=== PATIENT | female | born 1985 | race Caucasian/White ===

== ENCOUNTER 2018-02-25 16:56 | Inpatient (IN) | payer BC ==
[2018-02-25] MEDS ORDERED: Water For Irrigation,Sterile 1,000 ML Container IRR PRN (17:43)
[2018-02-25] MEDS ORDERED: Sodium Chloride 0.9% 2.5 ML Syringe FLUSH PRN (17:43)
[2018-02-25] MEDS ORDERED: Tranexamic Acid 1,000 MG in Sodium Chloride 0.9% 100 ML IV PRN (17:43)
[2018-02-25] MEDS ORDERED: Terbutaline 1 MG/ML SDV SUBCUT PRN (17:43)
[2018-02-25] MEDS ORDERED: Butorphanol 1 MG/ML SDV IVPUSH PRN (17:43)
[2018-02-25] MEDS ORDERED: Lidocaine 1% 50 ML MDV INJECT PRN (17:43)
[2018-02-25] MEDS ORDERED: Misoprostol 200 MCG Tab PO PRN (17:43)
[2018-02-25] MEDS ORDERED: Ampicillin 2 GM in Sodium Chloride 0.9% 100 ML IV ONE (17:43)
[2018-02-25] MEDS ORDERED: Methylergonovine 0.2 MG/1 ML Amp IM PRN (17:43)
[2018-02-25] MEDS ORDERED: Carboprost Tromethamine 250 MCG/1 ML Amp IM PRN (17:43)
[2018-02-25] MEDS ORDERED: Sodium Chloride 0.9% 10 ML Syringe FLUSH PRN (17:43)
[2018-02-25] MEDS ORDERED: Oxytocin/0.9 % Sodium Chloride 30 UNIT/500 ML BAG IV SCH ×2 (17:45)
[2018-02-25] MEDS ORDERED: Misoprostol 25 MCG (1/4 of 100 MCG) Tab VAG SCH (17:45)
[2018-02-25] MEDS: Ampicillin 1 GM in Sodium Chloride 0.9% 50 ML IV SCH (22:49)
[2018-02-25] MEDS: Misoprostol 25 MCG (1/4 of 100 MCG) Tab VAG PRN (23:05)
[2018-02-26] MEDS: Ampicillin 1 GM in Sodium Chloride 0.9% 50 ML IV SCH ×5 (02:46→19:10)
[2018-02-26] MEDS: Misoprostol 25 MCG (1/4 of 100 MCG) Tab VAG PRN (03:57)
[2018-02-26] MEDS: Lactated Ringers 1,000 ML IV SCH ×4 (13:00→20:38)
[2018-02-26] MEDS ORDERED: Ropivacaine 0.2% 2 MG/ML 20 ML SDV ONE (13:32)
--- NOTE | 2018-02-26 14:13 | PCM.PREANE ---
Preanesthetic Assessment - Procedure Proposed Procedure: labor epidural - Anesthesia/Transfusion/Family Hx Anesthesia History: Prior Anesthesia Without Reaction Family History of Anesthesia Reaction: No - Review of Systems Other: Reports: None - Physical Assessment Height: 5 ft 4 in Weight: 115.666 kg ASA Class: 2 Mental Status: Alert & Oriented x3 Airway Class: Mallampati = 1 Dentition: Reports: Normal Dentition Thyro-Mental Finger Breadths: 3 Mouth Opening Finger Breadths: 3 ROM/Head Extension: Full - Lab Values: Laboratory Last Values WBC 11.64 K/uL (4.0-11.0) H 02/25/18 18:15 RBC 4.47 M/uL (4.30-5.90) 02/25/18 18:15 Hgb 13.1 g/dL (12.0-16.0) 02/25/18 18:15 Hct 38.6 % (36.0-46.0) 02/25/18 18:15 MCV 86.4 fL (80.0-98.0) 02/25/18 18:15 MCH 29.3 pg (27.0-32.0) 02/25/18 18:15 MCHC 33.9 g/dL (31.0-37.0) 02/25/18 18:15 RDW Std Deviation 46.6 fl (28.0-62.0) 02/25/18 18:15 RDW Coeff of Natasha 15 % (11.0-15.0) 02/25/18 18:15 Plt Count 211 K/uL (150-400) 02/25/18 18:15 MPV 11.70 fL (7.40-12.00) 02/25/18 18:15 Nucleated RBC % 0.0 /100WBC 02/25/18 18:15 Nucleated RBCs # 0 K/uL 02/25/18 18:15 Blood Type O POSITIVE 02/25/18 18:15 Antibody Screen NEGATIVE 02/25/18 18:15 - Allergies Allergies/Adverse Reactions: Allergies Allergy/AdvReac Type Severity Reaction Status Date / Time No Known Allergies Allergy Verified 02/25/18 17:39 - Blood Blood Available: Yes Product(s) Available: PRBC - Acknowledgements Anesthesia Type Planned: Epidural Pt an Appropriate Candidate for the Planned Anesthesia: Yes Alternatives and Risks of Anesthesia Discussed w Pt/Guardian: Yes Pt/Guardian Understands and Agrees with Anesthesia Plan: Yes PreAnesthesia Questionnaire HEENT History: Reports: Other (See Below) [employer] SALES History: Reports: , Spontaneous - Past Surgical History HEENT Surgical History: Reports: Other (See Below) Other HEENT Surgeries/Procedures: Retinal Hole laser . [place] teeth extraction - SUBSTANCE USE Smoking Status *Q: Never Smoker Tobacco Use Within Last Twelve Months: No Second Hand Smoke Exposure: No Recreational Drug Use History: No - HOME MEDS Home Medications: Home Meds Fexofenadine/Pseudoephedrine [Verónica-D 24 Hour Tablet] 1 each PO 02/25/18 [ History] MV-Mn/Iron/FA/Herbal Cmplx#190 [Vitamin D3 Complete Caplet] 1 each PO 02/25/18 [ History] Vit No.129/Iron/FA [ Tablet] 1 each PO 02/25/18 [History] - CURRENT (IN HOUSE) MEDS Current Meds: Current Medications Butorphanol Tartrate (Stadol) 1 mg IVPUSH ASDIRECTED PRN PRN Reason: Pain Carboprost Tromethamine (Hemabate Ds) 250 mcg IM ASDIRECTED PRN PRN Reason: Post Hemorrhage Lactated Ringer's (Ringers, Lactated) 1,000 mls @ 150 mls/hr IV ASDIRECTED SHANE Last Admin: 02/26/18 14:02 Dose: 999 mls/hr Oxytocin/Sodium Chloride (Oxytocin 30 Unit/500 Ml-Ns) 30 unit in 500 mls @ 999 mls/hr IV TITRATE SHANE Oxytocin/Sodium Chloride (Oxytocin 30 Unit/500 Ml-Ns) 30 unit in 500 mls @ 2 mls/hr IV TITRATE SHANE; Protocol Last Titration: 02/26/18 14:05 Dose: 12 munits/min, 12 mls/hr Tranexamic Acid 1,000 mg/ (Sodium Chloride) 110 mls @ 660 mls/hr IV ONETIME PRN PRN Reason: Bleeding Ampicillin Sodium 1 gm/ Sodium (Chloride) 50 mls @ 100 mls/hr IV Q4H SHANE Last Admin: 02/26/18 10:21 Dose: 100 mls/hr Lidocaine HCl (Xylocaine 1%) 50 ml INJECT .ONCE PRN PRN Reason: Laceration repair Methylergonovine Maleate (Methergine) 0.2 mg IM ASDIRECTED PRN PRN Reason: Post Hemorrhage Misoprostol (Cytotec) 200 mcg PO .ONCE PRN PRN Reason: Post Hemorrhage Misoprostol (Cytotec) 25 mcg VAG .ONCE SHANE Last Admin: 02/25/18 18:29 Dose: 25 mcg Misoprostol (Cytotec) 25 mcg VAG Q4H PRN PRN Reason: Cervical Ripening Last Admin: 02/26/18 03:57 Dose: 25 mcg Sodium Chloride (Saline Flush) 10 ml FLUSH ASDIRECTED PRN PRN Reason: Keep Vein Open Sodium Chloride (Saline Flush) 2.5 ml FLUSH ASDIRECTED PRN PRN Reason: Keep Vein Open Sterile Water (Sterile Water For Irrigation) 1,000 ml IRR ASDIRECTED PRN PRN Reason: delivery Terbutaline Sulfate (Brethine) 0.25 mg SUBCUT ASDIRECTED PRN PRN Reason: Tacysystole Discontinued Medications Ampicillin Sodium 2 gm/ Sodium (Chloride) 100 mls @ 200 mls/hr IV ONETIME ONE Stop: 02/25/18 18:12 Last Admin: 02/25/18 18:25 Dose: 200 mls/hr Fentanyl/Bupivacaine HCl (Jkayflsy-Npcvn-Ax 2 Mcg/Ml-0.125%) Confirm Administered Dose 100 mls @ as directed EP .STK-MED ONE Stop: 02/26/18 13:33 Ropivacaine (Naropin 0.2%) Confirm Administered Dose 20 ml .ROUTE .STK-MED ONE Stop: 02/26/18 13:33
[2018-02-26] MEDS ORDERED: Citric Acid/Sodium Citrate Solution 30 ML Cup PO ONE (19:38)
[2018-02-26] MEDS ORDERED: Bupivacaine 0.5% 10 ML SDV ONE (23:04)
[2018-02-26] MEDS ORDERED: Ropivacaine HCl/PF 100 ML ONE (23:04)
[2018-02-27] MEDS: Ampicillin 1 GM in Sodium Chloride 0.9% 50 ML IV SCH ×2 (00:10→04:10)
[2018-02-27] MEDS ORDERED: Bupivacaine 0.5% 10 ML SDV ONE (06:36)
[2018-02-27] MEDS ORDERED: ceFAZolin 2 GM in Premix Bag 1 BAG IV ONE (06:46)
[2018-02-27] MEDS ORDERED: ceFAZolin/Dextrose,Iso-Osmotic 2 GM/50 ML Duplex Bag IV ONE (06:53)
[2018-02-27] MEDS ORDERED: Morphine PF 1 MG/ML Amp ONE (06:58)
[2018-02-27] MEDS ORDERED: Oxytocin/0.9 % Sodium Chloride 30 UNIT/500 ML BAG IV SCH (07:00)
[2018-02-27] MEDS ORDERED: Citric Acid/Sodium Citrate Solution 30 ML Cup PO SCH (07:00)
[2018-02-27] MEDS ORDERED: ePHEDrine 50 MG/ML SDV ONE (07:05)
[2018-02-27] MEDS ORDERED: Phenylephrine/Normal Saline 100 MCG/ML 10 ML Syringe ONE (07:06)
[2018-02-27] MEDS ORDERED: fentaNYL 100 MCG/2 ML SDV ONE ×2 (07:11→07:29)
[2018-02-27] MEDS ORDERED: Oxytocin 10 Units/1 ML SDV ONE (07:25)
[2018-02-27] MEDS ORDERED: Acetaminophen/oxyCODONE 325-5 MG Tab PO PRN (07:48)
[2018-02-27] MEDS ORDERED: Lanolin 100% Cream 7 GM Tube TOP PRN (07:48)
[2018-02-27] MEDS ORDERED: Bisacodyl 10 MG Supp RECTAL PRN (07:48)
[2018-02-27] MEDS ORDERED: Aluminum Hydroxide/Magnesium Hydroxide/Simethicone Susp 30 ML Cup PO PRN (07:48)
[2018-02-27] MEDS ORDERED: Ondansetron 4 MG/2 ML SDV IV PRN (07:48)
[2018-02-27] MEDS ORDERED: diphenhydrAMINE 50 MG/ML SDV IVPUSH PRN ×2 (07:48→08:07)
[2018-02-27] MEDS ORDERED: Simethicone 80 MG Tab.Chew PO PRN (07:48)
--- NOTE | 2018-02-27 07:57 | PCM.OPNOTE ---
- General Post-Op/Procedure Note Date of Surgery/Procedure: 02/27/18 Operative Procedure(s): Primary LTCS Findings: Term male APGARs 9, 9 weight 3540 gm. Delivery intact placenta with 3V cord Pre Op Diagnosis: 40/1 week IUP. Arrest of descent Post-Op Diagnosis: Same Anesthesia Technique: Epidural Primary Surgeon: Jenelle Daniels Fluid Replacement, Intraop: 1,100 EBL in mLs: 500 Complications: none known Condition: Good Free Text/Narrative:: Dictation [id number]
[2018-02-27] MEDS ORDERED: Lactated Ringers 1,000 ML IV SCH (08:00)
[2018-02-27] MEDS: Ketorolac 30 MG/ML SDV IVPUSH SCH ×3 (08:04→20:25)
[2018-02-27] MEDS ORDERED: Naloxone 0.4 MG/ML Syringe IVPUSH PRN (08:07)
[2018-02-27] MEDS ORDERED: Nalbuphine 10 MG/ML 10 ML MDV IVPUSH PRN (08:07)
[2018-02-27] MEDS: Docusate Sodium 100 MG Cap PO SCH ×2 (10:34→21:42)
--- NOTE | 2018-02-27 11:45 | OR ---
SURGEON: Jenelle Daniels M.D. DATE OF PROCEDURE: 02/27/2018 PREOPERATIVE DIAGNOSES: 1. Forty and one week intrauterine . 2. Arrest of descent. POSTOPERATIVE DIAGNOSES: 1. Forty and one week intrauterine . 2. Arrest of descent. PROCEDURE: Primary low-transverse section. ANESTHESIA: Epidural. ESTIMATED BLOOD LOSS: 500 mL. FLUIDS: 1100 mL crystalloid in OR. FINDINGS: Term male, score 9 at 1 minute, 9 at 5 minutes. Weight of 3540 g and delivery of placenta, 3-vessel cord. Normal-appearing pelvis. DISPOSITION: The patient to PACU, stable. to nursery. PROCEDURE IN DETAIL: Grace is a 32-year-old, G2, P0-0-1-0 at 41 weeks gestational age, who presented on the evening of 02/25/2018, for scheduled induction of labor due to polyhydramnios, term gestation. The patient underwent Cytotec ripening, progressed to Pitocin and made slow cervical change during the afternoon and evening hours yesterday but then progressed rather rapidly to 9 cm yesterday evening. She is group B beta strep positive, has been receiving ampicillin prophylaxis. She progressed to complete by approximately 2 a.m. and began pushing efforts at approximately 2:30-3 a.m. She pushed readily for a little over 2 hours, however, made minimal change past the +3 station. Thus came in and discussed options with her. They elected for forceps-assisted vaginal delivery attempt. Closed Lepe's forceps are utilized. The bladder is drained. sutures were palpated including sagittal suture. I was able to place the left blade followed by the right blade and with the next pushing efforts after being able to lock the blade with contraction, was able to attempt to help with delivery of the head. However, there was just really no descent at all even with the forceps being applied. Therefore with this one effort, I discussed with the patient that it was probably best to proceed with delivery given the lack of descent even with the forceps assistance. She voiced her understanding and agrees. The forceps have been removed. Nursing supervisor poultry farm and anesthesia been notified. Risks of procedure discussed with her. The patient was taken to the operating room where she underwent a bolus of her epidural, was placed in the supine position leftward tilt in frog-leg position. She received Ancef prophylactically. SCDs to lower extremities. She was prepped and draped in the usual sterile fashion. A time-out was performed. After being prepped and draped in usual sterile fashion, anesthesia was tested and found be adequate. Pfannenstiel skin incision was created, carried down to level of the rectus fascia, which was incised in midline, lateralized on either side. The superior aspect of fascia was tented upward, dissected sharply and bluntly from underlying muscles. In the similar aspect performed the inferior aspect of the fascia and rectus muscles laterally. The peritoneum was entered, rectus muscles and peritoneum were now lateralized bluntly. Uterine position and position palpated. Self-retaining retractor gently placed. The uterovesical reflection visualized. Bladder flap was created sharply and bluntly. Bladder was mobilized away from lower uterine segment, bladder was swollen. The low-transverse hysterotomy was performed. Uterine cavity was entered with blunt-end scalpel. Hysterotomy was lateralized bluntly. Clear fluid was returned. There was a labor and delivery nurse with a vaginal hand present. On my signal, she was able to flex the head and push up to deliver out of the pelvis. My hand was able to secure the infant's head, delivered remainder of the body out of the pelvis. The infant's head was delivered followed by anterior shoulder, posterior shoulder and remainder of body without difficulty. The 's oropharynx and nares were bulb suctioned. A shoulder cord was noted, this was reduced manually. The 's oropharynx and nares bulb suctioned. Cord clamped x2 and cut. Infant was crying and vigorous, handed off to attending physician, Dr. Mcgee. Cord arterial, cord venous, cord blood sampling obtained. Light pressure was obtained. The placenta was now delivered. Uterine cavity was cleared of all clot and debris. Hysterotomy repaired using 0 Vicryl in continuous running locked fashion followed by a re-imbricating layer. Hemostasis appeared evident. Posterior aspect of the uterus inspected, no defects or hematomas found be forming. Region was well irrigated suction dried. Colonic gutters were cleared of all clot, debris, well irrigated and suction dried. Hysterotomy was once again inspected and found to be hemostatic. Self-retaining retractor now gently removed. Bladder blade now placed. Hysterotomy was again inspected and found to be hemostatic. The rectus muscle reapproximated using 0 Vicryl with inverted mattress suture technique. Anterior aspect of the muscle, posterior aspect of the fascia closely inspected. Any areas of oozing were cauterized. The rectus fascia was now reapproximated using 0 Vicryl in continuous running fashion beginning laterally on each side meeting in the midline. Subcutaneous tissues were irrigated and suction dried. Any areas of oozing were cauterized. The skin edges were reapproximated using 3-0 Vicryl in subcuticular fashion with imbrication by half-inch Steri-Strips. Sponge, instrument, needle count was correct x2. The patient tolerated the procedure well. She will go to PACU in stable condition, to nursery. DEYANIRA / LYDIA /[id number]
[2018-02-28] MEDS: Ketorolac 30 MG/ML SDV IVPUSH SCH ×2 (02:21→08:20)
--- NOTE | 2018-02-28 08:15 | PCM.PNPP ---
<Ana Maria Chris - Last Filed: 02/28/18 08:16> - General Info Date of Service: 02/28/18 Functional Status: Reports: Pain Controlled, Tolerating Diet, Ambulating, Urinating - Review of Systems General: Denies: Fever, Weakness, Fatigue Pulmonary: Denies: Shortness of Breath, Pleuritic Chest Pain, Cough Cardiovascular: Denies: Chest Pain, Palpitations, Dyspnea on Exertion Gastrointestinal: Denies: Abdominal Pain Genitourinary: Denies: Dysuria - Patient Data Vital Signs - Most Recent: Last Vital Signs Temp 36.3 C 02/28/18 05:00 Pulse 80 02/28/18 06:00 Resp 16 02/28/18 06:00 BP 128/75 02/28/18 00:45 Pulse Ox 95 02/28/18 06:00 Weight - Most Recent: 115.666 kg I&O - Last 24 Hours: Intake & Output 02/27/18 02/28/18 02/28/18 22:59 06:59 14:59 Intake Total 2075 Output Total 400 1650 Balance 1675 -1650 Lab Results - Last 24 Hours: Laboratory Results - last 24 hr 02/28/18 Range/Units 04:50 Hgb 9.8 L (12.0-16.0) g/dL Hct 30.0 L (36.0-46.0) % Med Orders - Current: Current Medications Al Hydroxide/Mg Hydroxide (Mag-Al Plus) 30 ml PO Q8H PRN PRN Reason: Heartburn Bisacodyl (Dulcolax) 10 mg RECTAL .ONCE PRN PRN Reason: Constipation Carboprost Tromethamine (Hemabate Ds) 250 mcg IM ASDIRECTED PRN PRN Reason: Post Hemorrhage Citric Acid/Sodium Citrate (Bicitra Solution) 30 ml PO .ONCE [facility]ANE Diphenhydramine HCl (Benadryl) 25 mg IVPUSH Q6H PRN PRN Reason: Itching or Nausea Docusate Sodium (Colace) 100 mg PO BID [facility] Last Admin: 02/27/18 21:42 Dose: 100 mg Emollient Ointment (Lansinoh Hpa) 0 gm TOP ASDIRECTED PRN PRN Reason: Sore Nipples Lactated Ringer's (Ringers, Lactated) 1,000 mls @ 150 mls/hr IV ASDIRECTED [facility] Last Admin: 02/26/18 20:38 Dose: 150 mls/hr Tranexamic Acid 1,000 mg/ (Sodium Chloride) 110 mls @ 660 mls/hr IV ONETIME PRN PRN Reason: Bleeding Oxytocin/Sodium Chloride (Oxytocin 30 Unit/500 Ml-Ns) 30 unit in 500 mls @ 250 mls/hr IV TITRATE [facility] Lactated Ringer's (Ringers, Lactated) 1,000 mls @ 125 mls/hr IV ASDIRECTED [facility] Last Admin: 02/27/18 10:35 Dose: 125 mls/hr Ibuprofen (Motrin) 800 mg PO Q8H PRN PRN Reason: mild pain or fever Methylergonovine Maleate (Methergine) 0.2 mg IM ASDIRECTED PRN PRN Reason: Post Hemorrhage Misoprostol (Cytotec) 200 mcg PO .ONCE PRN PRN Reason: Post Hemorrhage Ondansetron HCl (Zofran) 4 mg IV Q4H PRN PRN Reason: Nausea/Vomiting Oxycodone/Acetaminophen (Percocet 325-5 Mg) 1 tab PO Q4H PRN PRN Reason: Pain (moderate 4-6) Oxycodone/Acetaminophen (Percocet 325-5 Mg) 2 tab PO Q4H PRN PRN Reason: Pain (moderate 4-6) Simethicone (Simethicone) 80 mg PO Q4H PRN PRN Reason: Gas Sodium Chloride (Saline Flush) 10 ml FLUSH ASDIRECTED PRN PRN Reason: Keep Vein Open Sodium Chloride (Saline Flush) 2.5 ml FLUSH ASDIRECTED PRN PRN Reason: Keep Vein Open Discontinued Medications Bupivacaine HCl (Sensorcaine-Mpf 0.5%) Confirm Administered Dose 10 ml .ROUTE .STK-MED ONE Stop: 02/26/18 23:05 Last Admin: 02/27/18 09:15 Dose: Not Given Bupivacaine HCl (Sensorcaine-Mpf 0.5%) Confirm Administered Dose 20 ml .ROUTE .STK-MED ONE Stop: 02/27/18 06:37 Last Admin: 02/27/18 09:16 Dose: Not Given Butorphanol Tartrate (Stadol) 1 mg IVPUSH ASDIRECTED PRN PRN Reason: Pain Cefazolin Sodium/Dextrose (Ancef) Confirm Administered Dose 2 gm IV .STK-MED ONE Stop: 02/27/18 06:54 Citric Acid/Sodium Citrate (Bicitra Solution) 30 ml PO ONETIME ONE Stop: 02/26/18 19:39 Last Admin: 02/26/18 19:46 Dose: 30 ml Diphenhydramine HCl (Benadryl) 25 mg IVPUSH Q4H PRN PRN Reason: Itching Stop: 02/28/18 08:08 Ephedrine Sulfate (Ephedrine Sulfate) Confirm Administered Dose 50 mg .ROUTE .STK-MED ONE Stop: 02/27/18 07:06 Fentanyl (Sublimaze) Confirm Administered Dose 100 mcg .ROUTE .STK-MED ONE Stop: 02/27/18 07:12 Fentanyl (Sublimaze) Confirm Administered Dose 100 mcg .ROUTE .STK-MED ONE Stop: 02/27/18 07:30 Ampicillin Sodium 2 gm/ Sodium (Chloride) 100 mls @ 200 mls/hr IV ONETIME ONE Stop: 02/25/18 18:12 Last Admin: 02/25/18 18:25 Dose: 200 mls/hr Oxytocin/Sodium Chloride (Oxytocin 30 Unit/500 Ml-Ns) 30 unit in 500 mls @ 999 mls/hr IV TITRATE SHANE Oxytocin/Sodium Chloride (Oxytocin 30 Unit/500 Ml-Ns) 30 unit in 500 mls @ 2 mls/hr IV TITRATE [facility]; Protocol Last Titration: 02/27/18 02:20 Dose: 40 munits/min, 40 mls/hr Ampicillin Sodium 1 gm/ Sodium (Chloride) 50 mls @ 100 mls/hr IV Q4H [facility] Last Admin: 02/27/18 04:10 Dose: 100 mls/hr Fentanyl/Bupivacaine HCl (Notfdnjf-Bccef-Ey 2 Mcg/Ml-0.125%) Confirm Administered Dose 100 mls @ as directed EP .STK-MED ONE Stop: 02/26/18 13:33 Last Admin: 02/27/18 09:15 Dose: Not Given Fentanyl/Bupivacaine HCl (Gsucayra-Baapf-If 2 Mcg/Ml-0.125%) Confirm Administered Dose 100 mls @ as directed EP .STK-MED ONE Stop: 02/26/18 19:40 Last Admin: 06/20/18 09:15 Dose: Not Given Ropivacaine (Naropin 0.2%) Confirm Administered Dose 100 mls @ as directed .ROUTE .STK-MED ONE Stop: 02/26/18 23:05 Last Admin: 02/27/18 09:15 Dose: Not Given Cefazolin Sodium/Dextrose 2 gm (/ Premix) 50 mls @ 100 mls/hr IV ONETIME ONE Stop: 02/27/18 07:15 Last Admin: 02/27/18 09:15 Dose: Not Given Acetaminophen (Ofirmev) Confirm Administered Dose 100 mls @ as directed IV .STK- MED ONE Stop: 02/27/18 07:31 Ketorolac Tromethamine (Toradol) 30 mg IVPUSH Q6H [facility] Stop: 02/28/18 08:01 Last Admin: 02/28/18 02:21 Dose: 30 mg Lidocaine HCl (Xylocaine 1%) 50 ml INJECT .ONCE PRN PRN Reason: Laceration repair Misoprostol (Cytotec) 25 mcg VAG .ONCE [facility] Last Admin: 02/25/18 18:29 Dose: 25 mcg Misoprostol (Cytotec) 25 mcg VAG Q4H PRN PRN Reason: Cervical Ripening Last Admin: 02/26/18 03:57 Dose: 25 mcg Morphine Sulfate (Duramorph Pf) Confirm Administered Dose 1 mg .ROUTE .STK-MED ONE Stop: 02/27/18 06:59 Nalbuphine HCl (Nubain) 5 mg IVPUSH Q3H PRN PRN Reason: Pruritis Stop: 02/28/18 08:08 Naloxone HCl (Narcan) 0.1 mg IVPUSH ONETIME PRN PRN Reason: Respiratory Depression Stop: 02/28/18 08:08 Oxytocin (Pitocin) Confirm Administered Dose 20 unit .ROUTE .STK-MED ONE Stop: 02/27/18 07:26 Phenylephrine HCl (Phenylephrine In Ns 100 Mcg/Ml) Confirm Administered Dose 1 mg .ROUTE .STK-MED ONE Stop: 02/27/18 07:07 Ropivacaine (Naropin 0.2%) Confirm Administered Dose 20 ml .ROUTE .STK-MED ONE Stop: 02/26/18 13:33 Last Admin: 02/27/18 09:15 Dose: Not Given Sterile Water (Sterile Water For Irrigation) 1,000 ml IRR ASDIRECTED PRN PRN Reason: delivery Terbutaline Sulfate (Brethine) 0.25 mg SUBCUT ASDIRECTED PRN PRN Reason: Tacysystole - Interaction Disposition, : Point Lay to Nursery Infant Feeding: Attempted ; Nursed Fair/Poor Support Person: - Recovery Exam Fundal Tone: Firm Fundal Level: At Umbilicus Fundal Placement: Midline Lochia Amount: Scant Lochia Color: Rubra/Red Perineum Description: Intact, Minimal Bruising/Swelling Urinary Elimination: Not Voiding (catheter removed and has not voided) - Exam General: Alert Neck: Supple Lungs: Clear to Auscultation, Normal Respiratory Effort Cardiovascular: Regular Rate, Regular Rhythm GI/Abdominal Exam: Normal Bowel Sounds, Soft, Non-Tender, No Distention Extremities: Normal Inspection, Normal Capillary Refill, Pedal Edema (1+) Skin: Warm, Dry, Intact - Problem List & Annotations (1) delivery delivered SNOMED Code(s): 685033354 Code(s): O82 - ENCOUNTER FOR DELIVERY WITHOUT INDICATION Status: Acute Current Visit: Yes - Problem List Review Problem List Initiated/Reviewed/Updated: Yes - Assessment Assessment:: POD#1 s/p PLTCS for arrest of descent. Minimal pain and lochia. Will work on breast feeding today. Encouraged patient to ambulate halls and can shower. - Plan Plan:: Continue routine post-op cares. <Jenelle Daniels - Last Filed: 02/28/18 08:56> - Patient Data Vital Signs - Most Recent: Last Vital Signs Temp 36.6 C 02/28/18 08:08 Pulse 88 02/28/18 08:08 Resp 17 02/28/18 08:08 BP 119/62 02/28/18 08:08 Pulse Ox 96 02/28/18 08:08 I&O - Last 24 Hours: Intake & Output 02/27/18 02/28/18 02/28/18 22:59 06:59 14:59 Intake Total 2075 Output Total 400 1650 Balance 1675 -1650 Lab Results - Last 24 Hours: Laboratory Results - last 24 hr 02/28/18 Range/Units 04:50 Hgb 9.8 L (12.0-16.0) g/dL Hct 30.0 L (36.0-46.0) % Med Orders - Current: Current Medications Al Hydroxide/Mg Hydroxide (Mag-Al Plus) 30 ml PO Q8H PRN PRN Reason: Heartburn Bisacodyl (Dulcolax) 10 mg RECTAL .ONCE PRN PRN Reason: Constipation Carboprost Tromethamine (Hemabate Ds) 250 mcg IM ASDIRECTED PRN PRN Reason: Post Hemorrhage Citric Acid/Sodium Citrate (Bicitra Solution) 30 ml PO .ONCE [facility] Diphenhydramine HCl (Benadryl) 25 mg IVPUSH Q6H PRN PRN Reason: Itching or Nausea Docusate Sodium (Colace) 100 mg PO BID [facility] Last Admin: 02/28/18 08:21 Dose: 100 mg Emollient Ointment (Lansinoh Hpa) 0 gm TOP ASDIRECTED PRN PRN Reason: Sore Nipples Lactated Ringer's (Ringers, Lactated) 1,000 mls @ 150 mls/hr IV ASDIRECTED [facility] Last Admin: 02/26/18 20:38 Dose: 150 mls/hr Tranexamic Acid 1,000 mg/ (Sodium Chloride) 110 mls @ 660 mls/hr IV ONETIME PRN PRN Reason: Bleeding Oxytocin/Sodium Chloride (Oxytocin 30 Unit/500 Ml-Ns) 30 unit in 500 mls @ 250 mls/hr IV TITRATE [facility] Lactated Ringer's (Ringers, Lactated) 1,000 mls @ 125 mls/hr IV ASDIRECTED [facility] Last Admin: 02/27/18 10:35 Dose: 125 mls/hr Ibuprofen (Motrin) 800 mg PO Q8H PRN PRN Reason: mild pain or fever Methylergonovine Maleate (Methergine) 0.2 mg IM ASDIRECTED PRN PRN Reason: Post Hemorrhage Misoprostol (Cytotec) 200 mcg PO .ONCE PRN PRN Reason: Post Hemorrhage Ondansetron HCl (Zofran) 4 mg IV Q4H PRN PRN Reason: Nausea/Vomiting Oxycodone/Acetaminophen (Percocet 325-5 Mg) 1 tab PO Q4H PRN PRN Reason: Pain (moderate 4-6) Oxycodone/Acetaminophen (Percocet 325-5 Mg) 2 tab PO Q4H PRN PRN Reason: Pain (moderate 4-6) Simethicone (Simethicone) 80 mg PO Q4H PRN PRN Reason: Gas Sodium Chloride (Saline Flush) 10 ml FLUSH ASDIRECTED PRN PRN Reason: Keep Vein Open Sodium Chloride (Saline Flush) 2.5 ml FLUSH ASDIRECTED PRN PRN Reason: Keep Vein Open Discontinued Medications Bupivacaine HCl (Sensorcaine-Mpf 0.5%) Confirm Administered Dose 10 ml .ROUTE .STK-MED ONE Stop: 02/26/18 23:05 Last Admin: 02/27/18 09:15 Dose: Not Given Bupivacaine HCl (Sensorcaine-Mpf 0.5%) Confirm Administered Dose 20 ml .ROUTE .STK-MED ONE Stop: 02/27/18 06:37 Last Admin: 02/27/18 09:16 Dose: Not Given Butorphanol Tartrate (Stadol) 1 mg IVPUSH ASDIRECTED PRN PRN Reason: Pain Cefazolin Sodium/Dextrose (Ancef) Confirm Administered Dose 2 gm IV .STK-MED ONE Stop: 02/27/18 06:54 Citric Acid/Sodium Citrate (Bicitra Solution) 30 ml PO ONETIME ONE Stop: 02/26/18 19:39 Last Admin: 02/26/18 19:46 Dose: 30 ml Diphenhydramine HCl (Benadryl) 25 mg IVPUSH Q4H PRN PRN Reason: Itching Stop: 02/28/18 08:08 Ephedrine Sulfate (Ephedrine Sulfate) Confirm Administered Dose 50 mg .ROUTE .STK-MED ONE Stop: 02/27/18 07:06 Fentanyl (Sublimaze) Confirm Administered Dose 100 mcg .ROUTE .STK-MED ONE Stop: 02/27/18 07:12 Fentanyl (Sublimaze) Confirm Administered Dose 100 mcg .ROUTE .STK-MED ONE Stop: 02/27/18 07:30 Ampicillin Sodium 2 gm/ Sodium (Chloride) 100 mls @ 200 mls/hr IV ONETIME ONE Stop: 02/25/18 18:12 Last Admin: 02/25/18 18:25 Dose: 200 mls/hr Oxytocin/Sodium Chloride (Oxytocin 30 Unit/500 Ml-Ns) 30 unit in 500 mls @ 999 mls/hr IV TITRATE [facility] Oxytocin/Sodium Chloride (Oxytocin 30 Unit/500 Ml-Ns) 30 unit in 500 mls @ 2 mls/hr IV TITRATE [facility]; Protocol Last Titration: 02/27/18 02:20 Dose: 40 munits/min, 40 mls/hr Ampicillin Sodium 1 gm/ Sodium (Chloride) 50 mls @ 100 mls/hr IV Q4H [facility] Last Admin: 02/27/18 04:10 Dose: 100 mls/hr Fentanyl/Bupivacaine HCl (Slhmshiz-Qnwfo-Vw 2 Mcg/Ml-0.125%) Confirm Administered Dose 100 mls @ as directed EP .STK-MED ONE Stop: 02/26/18 13:33 Last Admin: 02/27/18 09:15 Dose: Not Given Fentanyl/Bupivacaine HCl (Khvoxzwj-Axxhh-Mn 2 Mcg/Ml-0.125%) Confirm Administered Dose 100 mls @ as directed EP .STK-MED ONE Stop: 02/26/18 19:40 Last Admin: 02/27/18 09:15 Dose: Not Given Ropivacaine (Naropin 0.2%) Confirm Administered Dose 100 mls @ as directed .ROUTE .STK-MED ONE Stop: 02/26/18 23:05 Last Admin: 02/27/18 09:15 Dose: Not Given Cefazolin Sodium/Dextrose 2 gm (/ Premix) 50 mls @ 100 mls/hr IV ONETIME ONE Stop: 02/27/18 07:15 Last Admin: 02/27/18 09:15 Dose: Not Given Acetaminophen (Ofirmev) Confirm Administered Dose 100 mls @ as directed IV .STK- MED ONE Stop: 02/27/18 07:31 Ketorolac Tromethamine (Toradol) 30 mg IVPUSH Q6H [facility] Stop: 02/28/18 08:01 Last Admin: 02/28/18 08:20 Dose: 30 mg Lidocaine HCl (Xylocaine 1%) 50 ml INJECT .ONCE PRN PRN Reason: Laceration repair Misoprostol (Cytotec) 25 mcg VAG .ONCE [facility] Last Admin: 02/25/18 18:29 Dose: 25 mcg Misoprostol (Cytotec) 25 mcg VAG Q4H PRN PRN Reason: Cervical Ripening Last Admin: 02/26/18 03:57 Dose: 25 mcg Morphine Sulfate (Duramorph Pf) Confirm Administered Dose 1 mg .ROUTE .STK-MED ONE Stop: 02/27/18 06:59 Nalbuphine HCl (Nubain) 5 mg IVPUSH Q3H PRN PRN Reason: Pruritis Stop: 02/28/18 08:08 Naloxone HCl (Narcan) 0.1 mg IVPUSH ONETIME PRN PRN Reason: Respiratory Depression Stop: 02/28/18 08:08 Oxytocin (Pitocin) Confirm Administered Dose 20 unit .ROUTE .STK-MED ONE Stop: 02/27/18 07:26 Phenylephrine HCl (Phenylephrine In Ns 100 Mcg/Ml) Confirm Administered Dose 1 mg .ROUTE .STK-MED ONE Stop: 02/27/18 07:07 Ropivacaine (Naropin 0.2%) Confirm Administered Dose 20 ml .ROUTE .STK-MED ONE Stop: 02/26/18 13:33 Last Admin: 02/27/18 09:15 Dose: Not Given Sterile Water (Sterile Water For Irrigation) 1,000 ml IRR ASDIRECTED PRN PRN Reason: delivery Terbutaline Sulfate (Brethine) 0.25 mg SUBCUT ASDIRECTED PRN PRN Reason: Tacysystole - My Orders Last 24 Hours: My Active Orders 02/27/18 08:00 Lactated Ringers [Ringers, Lactated] 1,000 ml IV ASDIRECTED 02/27/18 09:00 Docusate Sodium [Colace] 100 mg PO BID 02/27/18 Lunch Regular Diet [DIET] - Plan Plan:: Patient seen and examined--agree with above. Ambulate halls today, may shower. Tracy catheter has been removed.
[2018-02-28] MEDS: Docusate Sodium 100 MG Cap PO SCH ×2 (08:21→20:14)
[2018-02-28] MEDS: Acetaminophen/oxyCODONE 325-5 MG Tab PO PRN ×2 (14:28→20:14)
[2018-02-28] MEDS: Ibuprofen 800 MG Tab PO PRN ×2 (14:29→22:35)
--- NOTE | 2018-02-28 15:01 | PCM48HPAN ---
Post Anesthesia Note - EVALUATION WITHIN 48HRS OF ANESTHETIC Vital Signs in Normal Range: Yes Patient Participated in Evaluation: Yes Respiratory Function Stable: Yes Airway Patent: Yes Cardiovascular Function Stable: Yes Hydration Status Stable: Yes Pain Control Satisfactory: Yes Nausea and Vomiting Control Satisfactory: Yes Mental Status Recovered: Yes Resp Rate: 17
[2018-03-01] MEDS: Acetaminophen/oxyCODONE 325-5 MG Tab PO PRN ×2 (05:41→13:18)
[2018-03-01] MEDS: Docusate Sodium 100 MG Cap PO SCH ×2 (08:03→21:08)
[2018-03-01] MEDS: Ibuprofen 800 MG Tab PO PRN ×2 (08:03→19:47)
--- NOTE | 2018-03-01 08:05 | PCM.PNPP ---
<Ana Maria Chris - Last Filed: 03/01/18 08:06> - General Info Date of Service: 03/01/18 Functional Status: Reports: Pain Controlled, Tolerating Diet, Ambulating, Urinating - Review of Systems General: Denies: Fever, Weakness, Fatigue Pulmonary: Denies: Shortness of Breath, Pleuritic Chest Pain, Cough Cardiovascular: Denies: Chest Pain, Palpitations, Dyspnea on Exertion Gastrointestinal: Denies: Abdominal Pain Genitourinary: Denies: Dysuria - General Info Date of Service: 03/01/18 - Patient Data Vital Signs - Most Recent: Last Vital Signs Temp 36.7 C 03/01/18 03:41 Pulse 66 03/01/18 03:41 Resp 16 03/01/18 03:41 BP 116/51 L 03/01/18 03:41 Pulse Ox 93 L 03/01/18 03:41 Weight - Most Recent: 115.666 kg Med Orders - Current: Current Medications Al Hydroxide/Mg Hydroxide (Mag-Al Plus) 30 ml PO Q8H PRN PRN Reason: Heartburn Bisacodyl (Dulcolax) 10 mg RECTAL .ONCE PRN PRN Reason: Constipation Carboprost Tromethamine (Hemabate Ds) 250 mcg IM ASDIRECTED PRN PRN Reason: Post Hemorrhage Citric Acid/Sodium Citrate (Bicitra Solution) 30 ml PO .ONCE SHANE Diphenhydramine HCl (Benadryl) 25 mg IVPUSH Q6H PRN PRN Reason: Itching or Nausea Docusate Sodium (Colace) 100 mg PO BID COUNT INCLUDES THE [facility] Last Admin: 02/28/18 20:14 Dose: 100 mg Emollient Ointment (Lansinoh Hpa) 0 gm TOP ASDIRECTED PRN PRN Reason: Sore Nipples Lactated Ringer's (Ringers, Lactated) 1,000 mls @ 150 mls/hr IV ASDIRECTED COUNT INCLUDES THE [facility] Last Admin: 02/26/18 20:38 Dose: 150 mls/hr Tranexamic Acid 1,000 mg/ (Sodium Chloride) 110 mls @ 660 mls/hr IV ONETIME PRN PRN Reason: Bleeding Oxytocin/Sodium Chloride (Oxytocin 30 Unit/500 Ml-Ns) 30 unit in 500 mls @ 250 mls/hr IV TITRATE SHANE Lactated Ringer's (Ringers, Lactated) 1,000 mls @ 125 mls/hr IV ASDIRECTED SHANE Last Admin: 02/27/18 10:35 Dose: 125 mls/hr Ibuprofen (Motrin) 800 mg PO Q8H PRN PRN Reason: mild pain or fever Last Admin: 02/28/18 22:35 Dose: 800 mg Methylergonovine Maleate (Methergine) 0.2 mg IM ASDIRECTED PRN PRN Reason: Post Hemorrhage Misoprostol (Cytotec) 200 mcg PO .ONCE PRN PRN Reason: Post Hemorrhage Ondansetron HCl (Zofran) 4 mg IV Q4H PRN PRN Reason: Nausea/Vomiting Oxycodone/Acetaminophen (Percocet 325-5 Mg) 1 tab PO Q4H PRN PRN Reason: Pain (moderate 4-6) Last Admin: 03/01/18 05:41 Dose: 1 tab Oxycodone/Acetaminophen (Percocet 325-5 Mg) 2 tab PO Q4H PRN PRN Reason: Pain (moderate 4-6) Simethicone (Simethicone) 80 mg PO Q4H PRN PRN Reason: Gas Sodium Chloride (Saline Flush) 10 ml FLUSH ASDIRECTED PRN PRN Reason: Keep Vein Open Sodium Chloride (Saline Flush) 2.5 ml FLUSH ASDIRECTED PRN PRN Reason: Keep Vein Open Discontinued Medications Bupivacaine HCl (Sensorcaine-Mpf 0.5%) Confirm Administered Dose 10 ml .ROUTE .STK-MED ONE Stop: 02/26/18 23:05 Last Admin: 02/27/18 09:15 Dose: Not Given Bupivacaine HCl (Sensorcaine-Mpf 0.5%) Confirm Administered Dose 20 ml .ROUTE .STK-MED ONE Stop: 02/27/18 06:37 Last Admin: 02/27/18 09:16 Dose: Not Given Butorphanol Tartrate (Stadol) 1 mg IVPUSH ASDIRECTED PRN PRN Reason: Pain Cefazolin Sodium/Dextrose (Ancef) Confirm Administered Dose 2 gm IV .STK-MED ONE Stop: 02/27/18 06:54 Citric Acid/Sodium Citrate (Bicitra Solution) 30 ml PO ONETIME ONE Stop: 02/26/18 19:39 Last Admin: 02/26/18 19:46 Dose: 30 ml Diphenhydramine HCl (Benadryl) 25 mg IVPUSH Q4H PRN PRN Reason: Itching Stop: 02/28/18 08:08 Ephedrine Sulfate (Ephedrine Sulfate) Confirm Administered Dose 50 mg .ROUTE .STK-MED ONE Stop: 02/27/18 07:06 Fentanyl (Sublimaze) Confirm Administered Dose 100 mcg .ROUTE .STK-MED ONE Stop: 02/27/18 07:12 Fentanyl (Sublimaze) Confirm Administered Dose 100 mcg .ROUTE .STK-MED ONE Stop: 02/27/18 07:30 Ampicillin Sodium 2 gm/ Sodium (Chloride) 100 mls @ 200 mls/hr IV ONETIME ONE Stop: 02/25/18 18:12 Last Admin: 02/25/18 18:25 Dose: 200 mls/hr Oxytocin/Sodium Chloride (Oxytocin 30 Unit/500 Ml-Ns) 30 unit in 500 mls @ 999 mls/hr IV TITRATE SHANE Oxytocin/Sodium Chloride (Oxytocin 30 Unit/500 Ml-Ns) 30 unit in 500 mls @ 2 mls/hr IV TITRATE SHANE; Protocol Last Titration: 02/27/18 02:20 Dose: 40 munits/min, 40 mls/hr Ampicillin Sodium 1 gm/ Sodium (Chloride) 50 mls @ 100 mls/hr IV Q4H SHANE Last Admin: 02/27/18 04:10 Dose: 100 mls/hr Fentanyl/Bupivacaine HCl (Swsgcoxp-Vndke-Zo 2 Mcg/Ml-0.125%) Confirm Administered Dose 100 mls @ as directed EP .STK-MED ONE Stop: 02/26/18 13:33 Last Admin: 02/27/18 09:15 Dose: Not Given Fentanyl/Bupivacaine HCl (Nfkfereq-Exvnk-Hz 2 Mcg/Ml-0.125%) Confirm Administered Dose 100 mls @ as directed EP .STK-MED ONE Stop: 02/26/18 19:40 Last Admin: 02/27/18 09:15 Dose: Not Given Ropivacaine (Naropin 0.2%) Confirm Administered Dose 100 mls @ as directed .ROUTE .STK-MED ONE Stop: 02/26/18 23:05 Last Admin: 02/27/18 09:15 Dose: Not Given Cefazolin Sodium/Dextrose 2 gm (/ Premix) 50 mls @ 100 mls/hr IV ONETIME ONE Stop: 02/27/18 07:15 Last Admin: 02/27/18 09:15 Dose: Not Given Acetaminophen (Ofirmev) Confirm Administered Dose 100 mls @ as directed IV .STK- MED ONE Stop: 02/27/18 07:31 Ketorolac Tromethamine (Toradol) 30 mg IVPUSH Q6H SHANE Stop: 02/28/18 08:01 Last Admin: 02/28/18 08:20 Dose: 30 mg Lidocaine HCl (Xylocaine 1%) 50 ml INJECT .ONCE PRN PRN Reason: Laceration repair Misoprostol (Cytotec) 25 mcg VAG .ONCE SHANE Last Admin: 02/25/18 18:29 Dose: 25 mcg Misoprostol (Cytotec) 25 mcg VAG Q4H PRN PRN Reason: Cervical Ripening Last Admin: 02/26/18 03:57 Dose: 25 mcg Morphine Sulfate (Duramorph Pf) Confirm Administered Dose 1 mg .ROUTE .STK-MED ONE Stop: 02/27/18 06:59 Nalbuphine HCl (Nubain) 5 mg IVPUSH Q3H PRN PRN Reason: Pruritis Stop: 02/28/18 08:08 Naloxone HCl (Narcan) 0.1 mg IVPUSH ONETIME PRN PRN Reason: Respiratory Depression Stop: 02/28/18 08:08 Oxytocin (Pitocin) Confirm Administered Dose 20 unit .ROUTE .STK-MED ONE Stop: 02/27/18 07:26 Phenylephrine HCl (Phenylephrine In Ns 100 Mcg/Ml) Confirm Administered Dose 1 mg .ROUTE .STK-MED ONE Stop: 02/27/18 07:07 Ropivacaine (Naropin 0.2%) Confirm Administered Dose 20 ml .ROUTE .STK-MED ONE Stop: 02/26/18 13:33 Last Admin: 02/27/18 09:15 Dose: Not Given Sterile Water (Sterile Water For Irrigation) 1,000 ml IRR ASDIRECTED PRN PRN Reason: delivery Terbutaline Sulfate (Brethine) 0.25 mg SUBCUT ASDIRECTED PRN PRN Reason: Tacysystole - Infant Interaction Disposition, : to Nursery Infant Feeding: Attempted ; Nursed Fair/Poor Support Person: - Recovery Exam Fundal Tone: Firm Fundal Level: 1 Fingerbreadths Below Umbilicus Fundal Placement: Midline Lochia Amount: Scant Lochia Color: Rubra/Red Perineum Description: Intact, Minimal Bruising/Swelling Episiotomy/Laceration: None Bladder Status: Voiding Urinary Elimination: Voided Other Urinary Elimination, : pt denies need to void at this time. - Exam General: Alert, Oriented Neck: Supple Lungs: Clear to Auscultation, Normal Respiratory Effort Cardiovascular: Regular Rate, Regular Rhythm GI/Abdominal Exam: Normal Bowel Sounds, Soft, No Distention, No Mass Extremities: Normal Inspection, Normal Capillary Refill, Pedal Edema (trace) Skin: Warm, Dry, Intact - Problem List & Annotations (1) delivery delivered SNOMED Code(s): 780081734 Code(s): O82 - ENCOUNTER FOR DELIVERY WITHOUT INDICATION Status: Acute Current Visit: Yes - Problem List Review Problem List Initiated/Reviewed/Updated: Yes - Assessment Assessment:: POD#2 s/p PLTCS for arrest of descent. Minimal pain and lochia. Breast feeding well. Discharge home today. - Plan Plan:: Discharge instructions reviewed. Pelvic rest for 6 weeks. Rx for Percocet to use as needed for pain. No lifting greater than 15lbs for 6 weeks. Instructed patient to call if she develops fever greater than 101 or bleeding through a large pad an hour. F/U with [facility] in 2 and 6 weeks <Jenelle Daniels - Last Filed: 03/01/18 08:52> - Patient Data Vital Signs - Most Recent: Last Vital Signs Temp 36.2 C 03/01/18 08:08 Pulse 83 03/01/18 08:08 Resp 16 03/01/18 08:08 BP 123/68 03/01/18 08:08 Pulse Ox 97 03/01/18 08:08 Med Orders - Current: Current Medications Al Hydroxide/Mg Hydroxide (Mag-Al Plus) 30 ml PO Q8H PRN PRN Reason: Heartburn Bisacodyl (Dulcolax) 10 mg RECTAL .ONCE PRN PRN Reason: Constipation Carboprost Tromethamine (Hemabate Ds) 250 mcg IM ASDIRECTED PRN PRN Reason: Post Hemorrhage Citric Acid/Sodium Citrate (Bicitra Solution) 30 ml PO .ONCE SHANE Diphenhydramine HCl (Benadryl) 25 mg IVPUSH Q6H PRN PRN Reason: Itching or Nausea Docusate Sodium (Colace) 100 mg PO BID COUNT INCLUDES THE [facility] Last Admin: 03/01/18 08:03 Dose: 100 mg Emollient Ointment (Lansinoh Hpa) 0 gm TOP ASDIRECTED PRN PRN Reason: Sore Nipples Lactated Ringer's (Ringers, Lactated) 1,000 mls @ 150 mls/hr IV ASDIRECTED COUNT INCLUDES THE [facility] Last Admin: 02/26/18 20:38 Dose: 150 mls/hr Tranexamic Acid 1,000 mg/ (Sodium Chloride) 110 mls @ 660 mls/hr IV ONETIME PRN PRN Reason: Bleeding Oxytocin/Sodium Chloride (Oxytocin 30 Unit/500 Ml-Ns) 30 unit in 500 mls @ 250 mls/hr IV TITRATE COUNT INCLUDES THE [facility] Lactated Ringer's (Ringers, Lactated) 1,000 mls @ 125 mls/hr IV ASDIRECTED COUNT INCLUDES THE [facility] Last Admin: 02/27/18 10:35 Dose: 125 mls/hr Ibuprofen (Motrin) 800 mg PO Q8H PRN PRN Reason: mild pain or fever Last Admin: 03/01/18 08:03 Dose: 800 mg Methylergonovine Maleate (Methergine) 0.2 mg IM ASDIRECTED PRN PRN Reason: Post Hemorrhage Misoprostol (Cytotec) 200 mcg PO .ONCE PRN PRN Reason: Post Hemorrhage Ondansetron HCl (Zofran) 4 mg IV Q4H PRN PRN Reason: Nausea/Vomiting Oxycodone/Acetaminophen (Percocet 325-5 Mg) 1 tab PO Q4H PRN PRN Reason: Pain (moderate 4-6) Last Admin: 03/01/18 05:41 Dose: 1 tab Oxycodone/Acetaminophen (Percocet 325-5 Mg) 2 tab PO Q4H PRN PRN Reason: Pain (moderate 4-6) Simethicone (Simethicone) 80 mg PO Q4H PRN PRN Reason: Gas Sodium Chloride (Saline Flush) 10 ml FLUSH ASDIRECTED PRN PRN Reason: Keep Vein Open Sodium Chloride (Saline Flush) 2.5 ml FLUSH ASDIRECTED PRN PRN Reason: Keep Vein Open Discontinued Medications Bupivacaine HCl (Sensorcaine-Mpf 0.5%) Confirm Administered Dose 10 ml .ROUTE .STK-MED ONE Stop: 02/26/18 23:05 Last Admin: 02/27/18 09:15 Dose: Not Given Bupivacaine HCl (Sensorcaine-Mpf 0.5%) Confirm Administered Dose 20 ml .ROUTE .STK-MED ONE Stop: 02/27/18 06:37 Last Admin: 02/27/18 09:16 Dose: Not Given Butorphanol Tartrate (Stadol) 1 mg IVPUSH ASDIRECTED PRN PRN Reason: Pain Cefazolin Sodium/Dextrose (Ancef) Confirm Administered Dose 2 gm IV .STK-MED ONE Stop: 02/27/18 06:54 Citric Acid/Sodium Citrate (Bicitra Solution) 30 ml PO ONETIME ONE Stop: 02/26/18 19:39 Last Admin: 02/26/18 19:46 Dose: 30 ml Diphenhydramine HCl (Benadryl) 25 mg IVPUSH Q4H PRN PRN Reason: Itching Stop: 02/28/18 08:08 Ephedrine Sulfate (Ephedrine Sulfate) Confirm Administered Dose 50 mg .ROUTE .STK-MED ONE Stop: 02/27/18 07:06 Fentanyl (Sublimaze) Confirm Administered Dose 100 mcg .ROUTE .STK-MED ONE Stop: 02/27/18 07:12 Fentanyl (Sublimaze) Confirm Administered Dose 100 mcg .ROUTE .STK-MED ONE Stop: 02/27/18 07:30 Ampicillin Sodium 2 gm/ Sodium (Chloride) 100 mls @ 200 mls/hr IV ONETIME ONE Stop: 02/25/18 18:12 Last Admin: 02/25/18 18:25 Dose: 200 mls/hr Oxytocin/Sodium Chloride (Oxytocin 30 Unit/500 Ml-Ns) 30 unit in 500 mls @ 999 mls/hr IV TITRATE SHANE Oxytocin/Sodium Chloride (Oxytocin 30 Unit/500 Ml-Ns) 30 unit in 500 mls @ 2 mls/hr IV TITRATE SHANE; Protocol Last Titration: 02/27/18 02:20 Dose: 40 munits/min, 40 mls/hr Ampicillin Sodium 1 gm/ Sodium (Chloride) 50 mls @ 100 mls/hr IV Q4H SHANE Last Admin: 02/27/18 04:10 Dose: 100 mls/hr Fentanyl/Bupivacaine HCl (Evffmrws-Euzzt-Up 2 Mcg/Ml-0.125%) Confirm Administered Dose 100 mls @ as directed EP .STK-MED ONE Stop: 02/26/18 13:33 Last Admin: 02/27/18 09:15 Dose: Not Given Fentanyl/Bupivacaine HCl (Kvplqvit-Lgoti-Ao 2 Mcg/Ml-0.125%) Confirm Administered Dose 100 mls @ as directed EP .STK-MED ONE Stop: 02/26/18 19:40 Last Admin: 02/27/18 09:15 Dose: Not Given Ropivacaine (Naropin 0.2%) Confirm Administered Dose 100 mls @ as directed .ROUTE .STK-MED ONE Stop: 02/26/18 23:05 Last Admin: 02/27/18 09:15 Dose: Not Given Cefazolin Sodium/Dextrose 2 gm (/ Premix) 50 mls @ 100 mls/hr IV ONETIME ONE Stop: 02/27/18 07:15 Last Admin: 02/27/18 09:15 Dose: Not Given Acetaminophen (Ofirmev) Confirm Administered Dose 100 mls @ as directed IV .STK- MED ONE Stop: 02/27/18 07:31 Ketorolac Tromethamine (Toradol) 30 mg IVPUSH Q6H SHANE Stop: 02/28/18 08:01 Last Admin: 02/28/18 08:20 Dose: 30 mg Lidocaine HCl (Xylocaine 1%) 50 ml INJECT .ONCE PRN PRN Reason: Laceration repair Misoprostol (Cytotec) 25 mcg VAG .ONCE SHANE Last Admin: 02/25/18 18:29 Dose: 25 mcg Misoprostol (Cytotec) 25 mcg VAG Q4H PRN PRN Reason: Cervical Ripening Last Admin: 02/26/18 03:57 Dose: 25 mcg Morphine Sulfate (Duramorph Pf) Confirm Administered Dose 1 mg .ROUTE .STK-MED ONE Stop: 02/27/18 06:59 Nalbuphine HCl (Nubain) 5 mg IVPUSH Q3H PRN PRN Reason: Pruritis Stop: 02/28/18 08:08 Naloxone HCl (Narcan) 0.1 mg IVPUSH ONETIME PRN PRN Reason: Respiratory Depression Stop: 02/28/18 08:08 Oxytocin (Pitocin) Confirm Administered Dose 20 unit .ROUTE .STK-MED ONE Stop: 02/27/18 07:26 Phenylephrine HCl (Phenylephrine In Ns 100 Mcg/Ml) Confirm Administered Dose 1 mg .ROUTE .STK-MED ONE Stop: 02/27/18 07:07 Ropivacaine (Naropin 0.2%) Confirm Administered Dose 20 ml .ROUTE .STK-MED ONE Stop: 02/26/18 13:33 Last Admin: 02/27/18 09:15 Dose: Not Given Sterile Water (Sterile Water For Irrigation) 1,000 ml IRR ASDIRECTED PRN PRN Reason: delivery Terbutaline Sulfate (Brethine) 0.25 mg SUBCUT ASDIRECTED PRN PRN Reason: Tacysystole - Plan Plan:: patient seen and examined, agree with above
[2018-03-02] MEDS: Acetaminophen/oxyCODONE 325-5 MG Tab PO PRN ×2 (00:59→10:12)
--- NOTE | 2018-03-02 07:54 | PCM.PNPP ---
- General Info Date of Service: 03/02/18 Functional Status: Reports: Pain Controlled, Tolerating Diet, Ambulating, Urinating - Review of Systems General: Denies: Fever, Weakness, Fatigue Pulmonary: Denies: Shortness of Breath Cardiovascular: Denies: Chest Pain, Palpitations, Lightheadedness Gastrointestinal: Reports: Abdominal Pain (well controlled with pain meds), Flatus. Denies: Nausea, Vomiting Genitourinary: Denies: Flank Pain Neurological: Reports: No Symptoms Psychiatric: Reports: No Symptoms - General Info Date of Service: 03/02/18 - Patient Data Vital Signs - Most Recent: Last Vital Signs Temp 36.7 C 03/02/18 04:00 Pulse 85 03/02/18 04:00 Resp 18 03/02/18 04:00 BP 116/71 03/02/18 04:00 Pulse Ox 97 03/02/18 04:00 Weight - Most Recent: 115.666 kg Med Orders - Current: Current Medications Al Hydroxide/Mg Hydroxide (Mag-Al Plus) 30 ml PO Q8H PRN PRN Reason: Heartburn Bisacodyl (Dulcolax) 10 mg RECTAL .ONCE PRN PRN Reason: Constipation Carboprost Tromethamine (Hemabate Ds) 250 mcg IM ASDIRECTED PRN PRN Reason: Post Hemorrhage Citric Acid/Sodium Citrate (Bicitra Solution) 30 ml PO .ONCE SHANE Diphenhydramine HCl (Benadryl) 25 mg IVPUSH Q6H PRN PRN Reason: Itching or Nausea Docusate Sodium (Colace) 100 mg PO BID [facility] Last Admin: 03/01/18 21:08 Dose: 100 mg Emollient Ointment (Lansinoh Hpa) 0 gm TOP ASDIRECTED PRN PRN Reason: Sore Nipples Last Admin: 03/01/18 19:51 Dose: 7 gm Lactated Ringer's (Ringers, Lactated) 1,000 mls @ 150 mls/hr IV ASDIRECTED [facility] Last Admin: 02/26/18 20:38 Dose: 150 mls/hr Tranexamic Acid 1,000 mg/ (Sodium Chloride) 110 mls @ 660 mls/hr IV ONETIME PRN PRN Reason: Bleeding Oxytocin/Sodium Chloride (Oxytocin 30 Unit/500 Ml-Ns) 30 unit in 500 mls @ 250 mls/hr IV TITRATE SHANE Lactated Ringer's (Ringers, Lactated) 1,000 mls @ 125 mls/hr IV ASDIRECTED SHANE Last Admin: 02/27/18 10:35 Dose: 125 mls/hr Ibuprofen (Motrin) 800 mg PO Q8H PRN PRN Reason: mild pain or fever Last Admin: 03/01/18 19:47 Dose: 800 mg Methylergonovine Maleate (Methergine) 0.2 mg IM ASDIRECTED PRN PRN Reason: Post Hemorrhage Misoprostol (Cytotec) 200 mcg PO .ONCE PRN PRN Reason: Post Hemorrhage Ondansetron HCl (Zofran) 4 mg IV Q4H PRN PRN Reason: Nausea/Vomiting Oxycodone/Acetaminophen (Percocet 325-5 Mg) 1 tab PO Q4H PRN PRN Reason: Pain (moderate 4-6) Last Admin: 03/02/18 00:59 Dose: 1 tab Oxycodone/Acetaminophen (Percocet 325-5 Mg) 2 tab PO Q4H PRN PRN Reason: Pain (moderate 4-6) Simethicone (Simethicone) 80 mg PO Q4H PRN PRN Reason: Gas Sodium Chloride (Saline Flush) 10 ml FLUSH ASDIRECTED PRN PRN Reason: Keep Vein Open Sodium Chloride (Saline Flush) 2.5 ml FLUSH ASDIRECTED PRN PRN Reason: Keep Vein Open Discontinued Medications Bupivacaine HCl (Sensorcaine-Mpf 0.5%) Confirm Administered Dose 10 ml .ROUTE .STK-MED ONE Stop: 02/26/18 23:05 Last Admin: 02/27/18 09:15 Dose: Not Given Bupivacaine HCl (Sensorcaine-Mpf 0.5%) Confirm Administered Dose 20 ml .ROUTE .STK-MED ONE Stop: 02/27/18 06:37 Last Admin: 02/27/18 09:16 Dose: Not Given Butorphanol Tartrate (Stadol) 1 mg IVPUSH ASDIRECTED PRN PRN Reason: Pain Cefazolin Sodium/Dextrose (Ancef) Confirm Administered Dose 2 gm IV .STK-MED ONE Stop: 02/27/18 06:54 Citric Acid/Sodium Citrate (Bicitra Solution) 30 ml PO ONETIME ONE Stop: 02/26/18 19:39 Last Admin: 02/26/18 19:46 Dose: 30 ml Diphenhydramine HCl (Benadryl) 25 mg IVPUSH Q4H PRN PRN Reason: Itching Stop: 02/28/18 08:08 Ephedrine Sulfate (Ephedrine Sulfate) Confirm Administered Dose 50 mg .ROUTE .STK-MED ONE Stop: 02/27/18 07:06 Fentanyl (Sublimaze) Confirm Administered Dose 100 mcg .ROUTE .STK-MED ONE Stop: 02/27/18 07:12 Fentanyl (Sublimaze) Confirm Administered Dose 100 mcg .ROUTE .STK-MED ONE Stop: 02/27/18 07:30 Ampicillin Sodium 2 gm/ Sodium (Chloride) 100 mls @ 200 mls/hr IV ONETIME ONE Stop: 02/25/18 18:12 Last Admin: 02/25/18 18:25 Dose: 200 mls/hr Oxytocin/Sodium Chloride (Oxytocin 30 Unit/500 Ml-Ns) 30 unit in 500 mls @ 999 mls/hr IV TITRATE SHANE Oxytocin/Sodium Chloride (Oxytocin 30 Unit/500 Ml-Ns) 30 unit in 500 mls @ 2 mls/hr IV TITRATE SHANE; Protocol Last Titration: 02/27/18 02:20 Dose: 40 munits/min, 40 mls/hr Ampicillin Sodium 1 gm/ Sodium (Chloride) 50 mls @ 100 mls/hr IV Q4H SHANE Last Admin: 02/27/18 04:10 Dose: 100 mls/hr Fentanyl/Bupivacaine HCl (Blnngkan-Imbxd-Pb 2 Mcg/Ml-0.125%) Confirm Administered Dose 100 mls @ as directed EP .STK-MED ONE Stop: 02/26/18 13:33 Last Admin: 02/27/18 09:15 Dose: Not Given Fentanyl/Bupivacaine HCl (Pymipkho-Vcoiz-Wn 2 Mcg/Ml-0.125%) Confirm Administered Dose 100 mls @ as directed EP .STK-MED ONE Stop: 02/26/18 19:40 Last Admin: 02/27/18 09:15 Dose: Not Given Ropivacaine (Naropin 0.2%) Confirm Administered Dose 100 mls @ as directed .ROUTE .STK-MED ONE Stop: 02/26/18 23:05 Last Admin: 02/27/18 09:15 Dose: Not Given Cefazolin Sodium/Dextrose 2 gm (/ Premix) 50 mls @ 100 mls/hr IV ONETIME ONE Stop: 02/27/18 07:15 Last Admin: 02/27/18 09:15 Dose: Not Given Acetaminophen (Ofirmev) Confirm Administered Dose 100 mls @ as directed IV .STK- MED ONE Stop: 02/27/18 07:31 Ketorolac Tromethamine (Toradol) 30 mg IVPUSH Q6H SHANE Stop: 02/28/18 08:01 Last Admin: 02/28/18 08:20 Dose: 30 mg Lidocaine HCl (Xylocaine 1%) 50 ml INJECT .ONCE PRN PRN Reason: Laceration repair Misoprostol (Cytotec) 25 mcg VAG .ONCE SHANE Last Admin: 02/25/18 18:29 Dose: 25 mcg Misoprostol (Cytotec) 25 mcg VAG Q4H PRN PRN Reason: Cervical Ripening Last Admin: 02/26/18 03:57 Dose: 25 mcg Morphine Sulfate (Duramorph Pf) Confirm Administered Dose 1 mg .ROUTE .STK-MED ONE Stop: 02/27/18 06:59 Nalbuphine HCl (Nubain) 5 mg IVPUSH Q3H PRN PRN Reason: Pruritis Stop: 02/28/18 08:08 Naloxone HCl (Narcan) 0.1 mg IVPUSH ONETIME PRN PRN Reason: Respiratory Depression Stop: 02/28/18 08:08 Oxytocin (Pitocin) Confirm Administered Dose 20 unit .ROUTE .STK-MED ONE Stop: 02/27/18 07:26 Phenylephrine HCl (Phenylephrine In Ns 100 Mcg/Ml) Confirm Administered Dose 1 mg .ROUTE .STK-MED ONE Stop: 02/27/18 07:07 Ropivacaine (Naropin 0.2%) Confirm Administered Dose 20 ml .ROUTE .STK-MED ONE Stop: 02/26/18 13:33 Last Admin: 02/27/18 09:15 Dose: Not Given Sterile Water (Sterile Water For Irrigation) 1,000 ml IRR ASDIRECTED PRN PRN Reason: delivery Terbutaline Sulfate (Brethine) 0.25 mg SUBCUT ASDIRECTED PRN PRN Reason: Tacysystole - Infant Interaction Infant Disposition, : [place] to Nursery Feeding: Attempted ; Nursed Fair/Poor Support Person: - Recovery Exam Fundal Tone: Firm Fundal Level: At Umbilicus Fundal Placement: Midline Lochia Amount: Scant Lochia Color: Rubra/Red Perineum Description: Intact, Minimal Bruising/Swelling Episiotomy/Laceration: None Bladder Status: Voiding Urinary Elimination: Voided Other Urinary Elimination, : pt denies need to void at this time. - Exam General: Alert Lungs: Normal Respiratory Effort Cardiovascular: Regular Rate, Regular Rhythm GI/Abdominal Exam: Normal Bowel Sounds, Soft, Non-Tender, No Distention Extremities: Pedal Edema (1+). No: Steff's Sign Skin: Warm, Dry, Intact Wound/Incisions: Healing Well, No Drainage. No: Erythema Psy/Mental Status: Alert, Normal Affect, Normal Mood - Problem List & Annotations (1) delivery delivered SNOMED Code(s): 560600839 Code(s): O82 - ENCOUNTER FOR DELIVERY WITHOUT INDICATION Status: Acute Current Visit: Yes - Problem List Review Problem List Initiated/Reviewed/Updated: Yes - My Orders Last 24 Hours: My Active Orders 03/02/18 07:52 Ready for Discharge [RC] PER UNIT ROUTINE - Assessment Assessment:: POD#3 s/p PLTCS for arrest of descent. Minimal pain and lochia. Breast feeding going better with instruction. Discharge home today. - Plan Plan:: Baby's bilirubin is improved today and will be discharged. Discharge Grace to home today. Worked with yesterday and is going better.Reviewed discharge instructions again. Follow up at 2 and 6 weeks [facility]
[2018-03-02] MEDS: Ibuprofen 800 MG Tab PO PRN (08:10)
[2018-03-02] MEDS: Docusate Sodium 100 MG Cap PO SCH (10:13)
== END 2018-03-02 10:30 | disposition home or self-care (01) | DRG 540 ==
LOC: MW.OBCHECK 16:56 → MW.OB 18:06 → OBSVTOIN 02-27 07:06 → MW.OB 02-27 10:50
PROVIDERS: ADMIT Obstetrics & Gynecology; ATTEND Obstetrics & Gynecology
PROC: 10D00Z1 Extraction of Products of Conception, Low, Open Approach (ICD-10-PCS; principal; 2018-02-27)
PROC: 3E0P7VZ Introduction of Hormone into Female Reproductive, Via Natural or Artificial Opening (ICD-10-PCS; 2018-02-27)
PROC: 3E033VJ Introduction of Other Hormone into Peripheral Vein, Percutaneous Approach (ICD-10-PCS; 2018-02-27)
DX: O40.3XX0 Polyhydramnios, third trimester, not applicable or unspecified (principal); O32.4XX0 Maternal care for high head at term, not applicable or unspecified; O99.824 Streptococcus B carrier state complicating childbirth; Z3A.40 40 weeks gestation of pregnancy; Z37.0 Single live birth
CPT/HCPCS: 36415; 51702; 59025; 82803; 85014; 85018; 85027; 86850; 86900; 86901; A9270-GY; J0290; J0690; J1885; J2274; J2590; J2795; J3010; J7030; J7050; J7120

== ENCOUNTER 2021-02-15 10:20 | Inpatient (IN) | payer BC ==
[2021-02-15] MEDS ORDERED: Sodium Chloride 0.9% 10 ML SDV IV PRN (10:50)
[2021-02-15] MEDS ORDERED: Sodium Chloride 0.9% 10 ML Syringe FLUSH PRN (10:50)
[2021-02-15] MEDS ORDERED: Sodium Chloride 0.9% 2.5 ML Syringe FLUSH PRN (10:50)
[2021-02-15] MEDS ORDERED: diphenhydrAMINE 50 MG/ML SDV IVPUSH PRN ×2 (10:57→12:58)
[2021-02-15] MEDS ORDERED: Acetaminophen/oxyCODONE 325-5 MG Tab PO PRN ×2 (10:57→12:58)
[2021-02-15] MEDS ORDERED: Naloxone 0.4 MG/ML Syringe IVPUSH PRN (10:57)
[2021-02-15] MEDS ORDERED: Ondansetron 4 MG/2 ML SDV IVPUSH PRN ×2 (10:57→12:58)
[2021-02-15] MEDS ORDERED: Nalbuphine 10 MG/1 ML Vial IVPUSH PRN (10:57)
[2021-02-15] MEDS ORDERED: fentaNYL 100 MCG/2 ML SDV IVPUSH PRN (10:57)
--- NOTE | 2021-02-15 10:57 | PCM.PREANE ---
Preanesthetic Assessment - Anesthesia/Transfusion/Family Hx Anesthesia History: Prior Anesthesia Without Reaction Family History of Anesthesia Reaction: No Transfusion History: No Prior Transfusion(s) - Physical Assessment NPO Status Date: 02/15/21 NPO Status Time: 00:00 Height: 5 ft 5 in Weight: 260 lb ASA Class: 2 Airway Class: Mallampati = 3 - Lab Values: Laboratory Last Values WBC 11.07 K/uL (4.0-11.0) H 02/14/21 10:53 RBC 4.08 M/uL (4.30-5.90) L 02/14/21 10:53 Hgb 11.6 g/dL (12.0-16.0) L 02/14/21 10:53 Hct 35.3 % (36.0-46.0) L 02/14/21 10:53 MCV 86.5 fL (80.0-98.0) 02/14/21 10:53 MCH 28.4 pg (27.0-32.0) 02/14/21 10:53 MCHC 32.9 g/dL (31.0-37.0) 02/14/21 10:53 RDW Std Deviation 44.7 fl (28.0-62.0) 02/14/21 10:53 RDW Coeff of Natasha 14 % (11.0-15.0) 02/14/21 10:53 Plt Count 226 K/uL (150-400) 02/14/21 10:53 MPV 11.40 fL (7.40-12.00) 02/14/21 10:53 Nucleated RBC % 0.0 /100WBC 02/14/21 10:53 Nucleated RBCs # 0 K/uL 02/14/21 10:53 Blood Type O POSITIVE 02/14/21 10:53 Antibody Screen NEGATIVE 02/14/21 10:53 - Allergies Allergies/Adverse Reactions: Allergies Allergy/AdvReac Type Severity Reaction Status Date / Time No Known Allergies Allergy Verified 02/09/21 09:46 - Blood Blood Available: Yes - Acknowledgements Anesthesia Type Planned: Spinal Pt an Appropriate Candidate for the Planned Anesthesia: Yes Alternatives and Risks of Anesthesia Discussed w Pt/Guardian: Yes Pt/Guardian Understands and Agrees with Anesthesia Plan: Yes PreAnesthesia Questionnaire HEENT History: Reports: Other (See Below) Other HEENT History: wears glasses Cardiovascular History: Reports: None Respiratory History: Reports: None Gastrointestinal History: Reports: None Genitourinary History: Reports: None DETENTION SERGEANT History: Reports: , Spontaneous Musculoskeletal History: Reports: None Neurological History: Reports: None Psychiatric History: Reports: None Endocrine/Metabolic History: Reports: Obesity/BMI 30+ Hematologic History: Reports: None Immunologic History: Reports: None Oncologic (Cancer) History: Reports: None Dermatologic History: Reports: None - Past Surgical History Head Surgeries/Procedures: Reports: None HEENT Surgical History: Reports: Other (See Below) Other HEENT Surgeries/Procedures: Retinal Hole laser . [place] teeth extraction Cardiovascular Surgical History: Reports: None Respiratory Surgical History: Reports: None GI Surgical History: Reports: None Female Surgical History: Reports: Section Endocrine Surgical History: Reports: None Neurological Surgical History: Reports: None Musculoskeletal Surgical History: Reports: None Oncologic Surgical History: Reports: None Dermatological Surgical History: Reports: None - SUBSTANCE USE Tobacco Use Status *Q: Never Tobacco User - HOME MEDS Home Medications: Home Meds Fexofenadine/Pseudoephedrine [Verónica-D 24 Hour Tablet] 1 each PO DAILY 02/25/18 [History] Vit No.129/Iron/FA [ Tablet] 1 each PO DAILY 02/25/18 [History] - CURRENT (IN HOUSE) MEDS Current Meds: Current Medications Citric Acid/Sodium Citrate (Citric Acid/Sodium Citrate Solution 30 Ml Cup) 30 ml PO ONETIME ONE Stop: 02/15/21 10:51 Lactated Ringer's (Ringers, Lactated) 1,000 mls @ 500 mls/hr IV BOLUS SHANE Oxytocin/Sodium Chloride (Oxytocin 30 Unit/500 Ml-Ns) 30 unit in 500 mls @ 250 mls/hr IV TITRATE [facility] Cefazolin Sodium/Dextrose 2 gm (/ Premix) 50 mls @ 100 mls/hr IV ONETIME ONE Stop: 02/15/21 11:19 Sodium Chloride (Sodium Chloride 0.9% 10 Ml Syringe) 10 ml FLUSH ASDIRECTED PRN PRN Reason: Keep Vein Open Sodium Chloride (Sodium Chloride 0.9% 2.5 Ml Syringe) 2.5 ml FLUSH ASDIRECTED PRN PRN Reason: Keep Vein Open Sodium Chloride (Sodium Chloride 0.9% 10 Ml Sdv) 10 ml IV ASDIRECTED PRN PRN Reason: IV Use
[2021-02-15] MEDS ORDERED: Oxytocin/0.9 % Sodium Chloride 30 UNIT/500 ML BAG IV SCH (11:00)
[2021-02-15] MEDS ORDERED: Lactated Ringers 1,000 ML IV SCH (11:00)
[2021-02-15] MEDS ORDERED: ceFAZolin 2 GM in Premix Bag 1 BAG IV ONE (11:00)
[2021-02-15] MEDS ORDERED: Citric Acid/Sodium Citrate Solution 30 ML Cup PO ONE (11:00)
[2021-02-15] MEDS ORDERED: fentaNYL 100 MCG/2 ML SDV ONE (11:15)
[2021-02-15] MEDS ORDERED: Morphine PF 10 MG/10 ML SDV ONE (11:15)
[2021-02-15] MEDS ORDERED: Ondansetron 4 MG/2 ML SDV ONE ×2 (11:47→11:48)
[2021-02-15] MEDS ORDERED: Oxytocin 10 Units/1 ML SDV ONE (12:12)
[2021-02-15] MEDS ORDERED: Lanolin 100% Cream 7 GM Tube TOP PRN (12:58)
[2021-02-15] MEDS ORDERED: Bisacodyl 10 MG Supp RECTAL PRN (12:58)
[2021-02-15] MEDS ORDERED: Oxytocin 10 Units/1 ML SDV IM PRN (12:58)
[2021-02-15] MEDS ORDERED: Tranexamic Acid 1,000 MG in Sodium Chloride 0.9% 100 ML IV PRN (12:58)
[2021-02-15] MEDS ORDERED: Methylergonovine 0.2 MG/1 ML Amp IM PRN (12:58)
--- NOTE | 2021-02-15 13:06 | PCM.OPNOTE ---
- General Post-Op/Procedure Note Date of Surgery/Procedure: 02/15/21 Operative Procedure(s): Repeat LTCS Findings: Viable female APGARS 8, 9 weight 8 lb 7 oz. Intact placenta with 3V cord Pre Op Diagnosis: 39 week IUP. Previous c section, desires repeat Post-Op Diagnosis: same Anesthesia Technique: Spinal Primary Surgeon: Jenelle Daniels Fluid Replacement, Intraop: 1,000 EBL in mLs: 500 Complications: none known Condition: Good Free Text/Narrative:: Dictation [id number]
[2021-02-15] MEDS: Ketorolac 30 MG/ML SDV IVPUSH SCH ×2 (14:01→20:39)
[2021-02-15] MEDS: Lactated Ringers 1,000 ML IV SCH ×2 (16:37→20:43)
--- NOTE | 2021-02-15 20:32 | OR ---
SURGEON: Jenelle Daniels M.D. DATE OF PROCEDURE: 02/15/2021 PREOPERATIVE DIAGNOSES: 1. 39-week intrauterine . 2. Previous section, desires repeat. POSTOPERATIVE DIAGNOSES: 1. 39-week intrauterine . 2. Previous section, desires repeat. PROCEDURE: Repeat low-transverse section. PRIMARY SURGEON: Jenelle Daniels M.D. ANESTHESIA: Spinal. ESTIMATED BLOOD LOSS: 500 mL. FLUIDS: 1000 mL of crystalloid in OR. COMPLICATIONS: None known. FINDINGS: Viable female. scores 8 at one minute, 9 at five minutes. Weight of 8 pounds 7 ounces. Delivery of an intact placenta with 3-vessel cord. DISPOSITION: Infant to the nursery, mom in LDRP, PACU in stable condition. PROCEDURE DETAILS: Grace is a 35-year-old, G2, P1, at 39 weeks' gestational age who presents for scheduled repeat delivery. Risks of procedure were discussed. Proper consent obtained. The patient was taken to the operating room where she underwent spinal anesthetic, was placed in dorsal supine position with leftward tilt. SCDs to the lower extremities. Tracy to gravity. She was prepped and draped in the usual sterile fashion. Anesthesia was tested and found to be adequate. She received Ancef prophylactically. Previous Pfannenstiel scar was excised and subcutaneous tissue was incised down to the level of the rectus fascia which was incised in the midline, lateralized on either side sharply and bluntly. The superior aspect of the fascia was tented upward and dissected sharply and bluntly away from underlying muscle. A similar aspect performed with the inferior aspect of the fascia. Rectus muscles were in the midline. Peritoneum was entered. Rectus muscles and peritoneum were now lateralized bluntly. Uterine position and position were now gently palpated. Self-retaining retractor was now gently placed. The bladder flap was created sharply and bluntly and bladder was mobilized away from lower uterine segment. A low transverse hysterotomy was now performed. Uterine cavity was entered with blunt-ended scalpel. Hysterotomy was lateralized bluntly. Amniotomy was performed, clear fluid was returned. 's head was flexed, fundal pressure was applied. The 's head was delivered, followed by shoulders and remainder of body without difficulty. The 's oropharynx and nares were bulb suctioned. After a delay, cord was clamped x2 and cut. Infant was handed off to attending nursery staff. Cord blood samples were now obtained. The placenta was delivered. Uterine cavity was cleared of all clot and debris. Hysterotomy was repaired using 0 Vicryl in a continuous running locked fashion, followed by re-imbricating layer. The left uterine vessel was bleeding, therefore 2 [id number] sutures were placed along the region and hemostasis was evident thereafter. Posterior aspect of the uterus was inspected. No defects or hematomas were found be forming. Region was well irrigated and suction dried. Uterus was returned to the abdominal cavity. Colonic gutters were cleared of all clot and debris, well irrigated and suction dried. Hysterotomy was once again inspected, found to be hemostatic. Self-retaining retractor was now gently removed. Retractors were placed. Hysterotomy was once again inspected and found to be hemostatic. Rectus muscles and peritoneum were now reapproximated using 0 Vicryl in inverted mattress suture technique. Anterior aspect of the muscle and posterior aspect of the fascia were closely inspected, any areas of oozing were cauterized. The rectus fascia was reapproximated using 0 Vicryl in continuous running fashion beginning laterally on either side and meeting in midline. Subcutaneous tissue was well irrigated and suction dried. Any areas of oozing were cauterized. The skin edges were reapproximated using 3-0 Vicryl on a Mario Alberto needle in a subcuticular fashion, followed by placement of MARY dressing. Uterus remained firm. Sponge, instrument and needle counts were correct x2. The patient tolerated the procedure well overall. She will go to PACU in stable condition, to nursery. DEYANIRA / LYDIA /[id number]
[2021-02-15] MEDS: Docusate Sodium 100 MG Cap PO SCH (20:40)
[2021-02-16] MEDS: Ketorolac 30 MG/ML SDV IVPUSH SCH ×3 (01:14→12:32)
[2021-02-16] MEDS: Simethicone 80 MG Tab.Chew PO SCH ×4 (01:14→17:15)
[2021-02-16] MEDS: Lactated Ringers 1,000 ML IV SCH (04:36)
--- NOTE | 2021-02-16 08:18 | PCM.PNPP ---
- General Info Date of Service: 02/16/21 Functional Status: Reports: Pain Controlled, Tolerating Diet, Ambulating, Urinating - Review of Systems General: Reports: Fatigue. Denies: Fever, Weakness Pulmonary: Denies: Shortness of Breath Cardiovascular: Denies: Chest Pain, Palpitations, Lightheadedness Gastrointestinal: Denies: Abdominal Pain, Nausea, Vomiting Genitourinary: Denies: Flank Pain Musculoskeletal: Reports: No Symptoms Skin: Reports: No Symptoms Neurological: Reports: No Symptoms Psychiatric: Reports: No Symptoms - General Info Date of Service: 02/16/21 - Patient Data Vital Signs - Most Recent: Last Vital Signs Temp 36.8 C 02/16/21 08:00 Pulse 92 02/16/21 08:00 Resp 18 02/16/21 08:00 BP 115/59 L 02/16/21 08:00 Pulse Ox 96 02/16/21 08:00 Weight - Most Recent: 119.748 kg I&O - Last 24 Hours: Intake & Output 02/15/21 02/16/21 02/16/21 22:59 06:59 14:59 Intake Total 3259 Output Total 100 92 * Balance -100 235@ Lab Results - Last 24 Hours: Laboratory Results - last 24 hr 02/15/21 02/16/21 Range/Units 12:16 05:35 Hgb 9.0 L (12.0-16.0) g/dL Hct 27.9 L (36.0-46.0) % Cord ABG pH 7.235 (7.18-7.38) Cord ABG Base Excess -2 (-10--2) Cord VBG pH 7.327 (7.25-7.45) Cord VBG Base Excess -3 (-10--2) Med Orders - Current: Current Medications Bisacodyl (Bisacodyl 10 Mg Supp) 10 mg RECTAL ONETIME PRN PRN Reason: Constipation Diphenhydramine HCl (Diphenhydramine 50 Mg/Ml Sdv) 12.5 mg IVPUSH Q2H PRN PRN Reason: Itching Diphenhydramine HCl (Diphenhydramine 50 Mg/Ml Sdv) 25 mg IVPUSH Q6H PRN PRN Reason: Itching or Nausea Last Admin: 02/15/21 18:02 Dose: 25 mg Documented by: Docusate Sodium (Docusate Sodium 100 Mg Cap) 100 mg PO BID [facility] Last Admin: 02/15/21 20:40 Dose: 100 mg Documented by: Emollient Ointment (Lanolin 100% Cream 7 Gm Tube) 0 gm TOP ASDIRECTED PRN PRN Reason: Sore Nipples Fentanyl (Fentanyl 100 Mcg/2 Ml Sdv) 50 mcg IVPUSH Q1H PRN PRN Reason: Pain (severe 7-10) Lactated Ringer's (Ringers, Lactated) 1,000 mls @ 500 mls/hr IV BOLUS [facility] Last Admin: 02/15/21 11:00 Dose: 999 mls/hr Documented by: Oxytocin/Sodium Chloride (Oxytocin 30 Unit/500 Ml-Ns) 30 unit in 500 mls @ 250 mls/hr IV TITRATE [facility] Lactated Ringer's (Ringers, Lactated) 1,000 mls @ 125 mls/hr IV ASDIRECTED [facility] Last Admin: 02/16/21 04:36 Dose: 125 mls/hr Documented by: Tranexamic Acid 1,000 mg/ (Sodium Chloride) 110 mls @ 660 mls/hr IV ONETIME PRN PRN Reason: Bleeding Ibuprofen (Ibuprofen 800 Mg Tab) 800 mg PO Q8H PRN PRN Reason: mild pain or fever Ketorolac Tromethamine (Ketorolac 30 Mg/Ml Sdv) 30 mg IVPUSH Q6H [facility] Stop: 02/16/21 13:01 Last Admin: 02/16/21 06:50 Dose: 30 mg Documented by: Methylergonovine Maleate (Methylergonovine 0.2 Mg/1 Ml Amp) 0.2 mg IM ONETIME PRN PRN Reason: Excessive Vaginal Bleeding Nalbuphine HCl (Nalbuphine 10 Mg/1 Ml Vial) 5 mg IVPUSH ASDIRECTED PRN PRN Reason: Itching Naloxone HCl (Naloxone 0.4 Mg/Ml Syringe) 0.1 mg IVPUSH ONETIME PRN PRN Reason: Respiratory Depression Stop: 02/16/21 10:58 Ondansetron HCl (Ondansetron 4 Mg/2 Ml Sdv) 4 mg IVPUSH Q6H PRN PRN Reason: Nausea Ondansetron HCl (Ondansetron 4 Mg/2 Ml Sdv) 4 mg IVPUSH Q4H PRN PRN Reason: Nausea/Vomiting Last Admin: 02/15/21 14:37 Dose: 4 mg Documented by: Oxycodone/Acetaminophen (Acetaminophen/Oxycodone 325-5 Mg Tab) 1 tab PO Q4H PRN PRN Reason: Pain (severe 7-10) Oxycodone/Acetaminophen (Acetaminophen/Oxycodone 325-5 Mg Tab) 2 tab PO Q4H PRN PRN Reason: Pain (severe 7-10) Oxytocin (Oxytocin 10 Units/1 Ml Sdv) 10 unit IM ASDIRECTED PRN PRN Reason: Excessive Vaginal Bleeding Simethicone (Simethicone 80 Mg Tab.Chew) 160 mg PO QID [facility] Last Admin: 02/16/21 06:50 Dose: 160 mg Documented by: Sodium Chloride (Sodium Chloride 0.9% 10 Ml Syringe) 10 ml FLUSH ASDIRECTED PRN PRN Reason: Keep Vein Open Sodium Chloride (Sodium Chloride 0.9% 2.5 Ml Syringe) 2.5 ml FLUSH ASDIRECTED PRN PRN Reason: Keep Vein Open Sodium Chloride (Sodium Chloride 0.9% 10 Ml Sdv) 10 ml IV ASDIRECTED PRN PRN Reason: IV Use Discontinued Medications Citric Acid/Sodium Citrate (Citric Acid/Sodium Citrate Solution 30 Ml Cup) 30 ml PO ONETIME ONE Stop: 02/15/21 11:01 Ephedrine Sulfate (Ephedrine Sulfate 50 Mg/10 Ml Vial) Confirm Administered Dose 50 mg .ROUTE .STK-MED ONE Stop: 02/15/21 12:13 Fentanyl (Fentanyl 100 Mcg/2 Ml Sdv) Confirm Administered Dose 100 mcg .ROUTE .STK-MED ONE Stop: 02/15/21 11:16 Cefazolin Sodium/Dextrose 2 gm (/ Premix) 50 mls @ 100 mls/hr IV ONETIME ONE Stop: 02/15/21 11:29 Morphine Sulfate (Morphine Pf 10 Mg/10 Ml Sdv) Confirm Administered Dose 10 mg .ROUTE .STK-MED ONE Stop: 02/15/21 11:16 Non-Formulary Medication ( Vit No.129/Iron/Fa [ One Daily Tablet]) 1 each PO DAILY [facility] Non-Formulary Medication (Fexofenadine/Pseudoephedrine [Verónica-D 24 Hour Tablet]) 1 each PO DAILY [facility] Ondansetron HCl (Ondansetron 4 Mg/2 Ml Sdv) Confirm Administered Dose 4 mg .ROUTE .STK-MED ONE Stop: 02/15/21 11:48 Ondansetron HCl (Ondansetron 4 Mg/2 Ml Sdv) Confirm Administered Dose 4 mg .ROUTE .STK-MED ONE Stop: 02/15/21 11:49 Oxytocin (Oxytocin 10 Units/1 Ml Sdv) Confirm Administered Dose 30 unit .ROUTE .STK-MED ONE Stop: 02/15/21 12:13 - Infant Interaction Support Person: - Recovery Exam Fundal Tone: Firm Fundal Level: At Umbilicus Fundal Placement: Midline Lochia Amount: Scant Lochia Color: Rubra/Red Bladder Status: Indwelling Catheter in Place - Exam General: Alert, Oriented Lungs: Normal Respiratory Effort Cardiovascular: Regular Rate, Regular Rhythm GI/Abdominal Exam: Normal Bowel Sounds, Soft Extremities: Pedal Edema (1+). No: Steff's Sign Skin: Warm, Dry, Intact Wound/Incisions: Dressing Dry and Intact Neurological: No New Focal Deficit Psy/Mental Status: Alert, Normal Affect, Normal Mood - Problem List & Annotations (1) Status post repeat low transverse section SNOMED Code(s): 407031584, 03326392, 673970397, 926183465, 244360205 Code(s): Z98.891 - HISTORY OF UTERINE SCAR FROM PREVIOUS SURGERY Status: Acute Current Visit: Yes - Problem List Review Problem List Initiated/Reviewed/Updated: Yes - My Orders Last 24 Hours: My Active Orders 02/15/21 10:50 Patient Status [ADT] Routine Procedure Site Prep Instruct [RC] ASDIRECTED Up ad Jane [RC] ASDIRECTED Verify Patient Consent Obtain [RC] ASDIRECTED Vital Signs [RC] PER UNIT ROUTINE Sodium Chloride 0.9% [Normal Saline] 10 ml IV ASDIRECTED PRN Sodium Chloride 0.9% [Saline Flush] 10 ml FLUSH ASDIRECTED PRN Sodium Chloride 0.9% [Saline Flush] 2.5 ml FLUSH ASDIRECTED PRN Peripheral IV Insertion Adult [OM.PC] Routine Schedule Procedure [COMM] Per Unit Routine Resuscitation Status Routine 02/15/21 10:52 Notify Provider Vital Signs [RC] PRN 02/15/21 11:00 Lactated Ringers [Ringers, Lactated] 1,000 ml IV BOLUS Oxytocin/0.9 % Sodium Chloride [Oxytocin 30 Unit/500 ML-NS] 30 unit in 500 ml IV TITRATE 02/15/21 12:58 Patient Status [ADT] Routine Ambulate [RC] PER UNIT ROUTINE Communication Order [RC] PER UNIT ROUTINE Communication Order [RC] PER UNIT ROUTINE Communication Order [RC] Per Unit Routine May Shower [RC] ASDIRECTED Notify Provider Intake and Out [RC] ASDIRECTED Notify Provider Vital Signs [RC] ASDIRECTED RT Incentive Spirometry [RC] Q2HWA Vital Signs [RC] PER UNIT ROUTINE Acetaminophen/oxyCODONE [Percocet 325-5 MG] 1 tab PO Q4H PRN Acetaminophen/oxyCODONE [Percocet 325-5 MG] 2 tab PO Q4H PRN Lanolin [Lansinoh HPA] See Dose Instructions TOP ASDIRECTED PRN Methylergonovine [Methergine] 0.2 mg IM ONETIME PRN Ondansetron [Zofran] 4 mg IVPUSH Q4H PRN Oxytocin [Pitocin] 10 unit IM ASDIRECTED PRN Tranexamic Acid [Cyklokapron] 1,000 mg Sodium Chloride 0.9% [Normal Saline] 100 ml IV ONETIME bisacodyL [Dulcolax] 10 mg RECTAL ONETIME PRN diphenhydrAMINE [Benadryl] 25 mg IVPUSH Q6H PRN Abdominal Binder [OM.PC] Routine Assess Lochia [WOMSER] Per Unit Routine Assess Uterine Involution [WOMSER] Per Unit Routine Breast Pump [WOMSER] Per Unit Routine Heat Therapy [OM.PC] Routine Ice Therapy [OM.PC] Routine Peripheral IV Discontinue [OM.PC] Routine Sequential Compression Device [OM.PC] Per Unit Routine 02/15/21 12:59 Antiembolic Devices [RC] PER UNIT ROUTINE Cooling Warming Measures [RC] ASDIRECTED 02/15/21 13:00 Ketorolac [Toradol] 30 mg IVPUSH Q6H Lactated Ringers [Ringers, Lactated] 1,000 ml IV ASDIRECTED 02/15/21 Dinner Regular Diet [DIET] 02/15/21 18:00 Simethicone 160 mg PO QID 02/15/21 21:00 Docusate Sodium [Colace] 100 mg PO BID 02/16/21 19:00 Ibuprofen [Motrin] 800 mg PO Q8H PRN - Assessment Assessment:: POD 1 status post repeat LTCS - Plan Plan:: VS are stable. Labs reassuring. Continue postoperative cares. Encouraged ambul ation and may shower today.
[2021-02-16] MEDS ORDERED: [UNRECOGNIZED DRUG - REMARK] PO SCH (09:00)
[2021-02-16] MEDS ORDERED: Non-Formulary Medication 1 Each (Fexofenadine/Pseudoephedrine [Allegra-D 24 Hour Tablet] 1 PO SCH (09:00)
[2021-02-16] MEDS: Docusate Sodium 100 MG Cap PO SCH ×2 (09:26→20:23)
[2021-02-16] MEDS: Ibuprofen 800 MG Tab PO PRN (20:23)
[2021-02-16] MEDS: Acetaminophen/oxyCODONE 325-5 MG Tab PO PRN (22:12)
[2021-02-17] MEDS: Simethicone 80 MG Tab.Chew PO SCH ×2 (01:35→05:18)
[2021-02-17] MEDS: Ibuprofen 800 MG Tab PO PRN (05:18)
[2021-02-17] MEDS: Acetaminophen/oxyCODONE 325-5 MG Tab PO PRN (07:04)
--- NOTE | 2021-02-17 08:53 | PCM.PNPP ---
- General Info Date of Service: 02/17/21 Functional Status: Reports: Pain Controlled, Tolerating Diet, Ambulating, Urinating - Review of Systems General: Reports: Fatigue. Denies: Fever, Weakness Pulmonary: Denies: Shortness of Breath Cardiovascular: Denies: Chest Pain, Palpitations, Lightheadedness Gastrointestinal: Denies: Abdominal Pain, Nausea, Vomiting Genitourinary: Denies: Flank Pain Musculoskeletal: Reports: No Symptoms Skin: Reports: No Symptoms Neurological: Reports: No Symptoms Psychiatric: Reports: No Symptoms - General Info Date of Service: 02/17/21 - Patient Data Vital Signs - Most Recent: Last Vital Signs Temp 36.2 C 02/17/21 08:00 Pulse 88 02/17/21 08:00 Resp 16 02/17/21 08:00 BP 109/73 02/17/21 08:00 Pulse Ox 97 02/17/21 08:00 Weight - Most Recent: 119.748 kg Lab Results - Last 24 Hours: Laboratory Results - last 24 hr 02/14/21 Range/Units 10:53 RPR Non-Reac (Non-Reac) Med Orders - Current: Current Medications Bisacodyl (Bisacodyl 10 Mg Supp) 10 mg RECTAL ONETIME PRN PRN Reason: Constipation Diphenhydramine HCl (Diphenhydramine 50 Mg/Ml Sdv) 12.5 mg IVPUSH Q2H PRN PRN Reason: Itching Diphenhydramine HCl (Diphenhydramine 50 Mg/Ml Sdv) 25 mg IVPUSH Q6H PRN PRN Reason: Itching or Nausea Last Admin: 02/15/21 18:02 Dose: 25 mg Documented by: Docusate Sodium (Docusate Sodium 100 Mg Cap) 100 mg PO BID [facility] Last Admin: 02/16/21 20:23 Dose: 100 mg Documented by: Emollient Ointment (Lanolin 100% Cream 7 Gm Tube) 0 gm TOP ASDIRECTED PRN PRN Reason: Sore Nipples Fentanyl (Fentanyl 100 Mcg/2 Ml Sdv) 50 mcg IVPUSH Q1H PRN PRN Reason: Pain (severe 7-10) Lactated Ringer's (Ringers, Lactated) 1,000 mls @ 500 mls/hr IV BOLUS [facility] Last Admin: 02/15/21 11:00 Dose: 999 mls/hr Documented by: Oxytocin/Sodium Chloride (Oxytocin 30 Unit/500 Ml-Ns) 30 unit in 500 mls @ 250 mls/hr IV TITRATE [facility] Lactated Ringer's (Ringers, Lactated) 1,000 mls @ 125 mls/hr IV ASDIRECTED [facility] Last Infusion: 02/16/21 07:30 Dose: 0 mls/hr Documented by: Tranexamic Acid 1,000 mg/ (Sodium Chloride) 110 mls @ 660 mls/hr IV ONETIME PRN PRN Reason: Bleeding Ibuprofen (Ibuprofen 800 Mg Tab) 800 mg PO Q8H PRN PRN Reason: mild pain or fever Last Admin: 02/17/21 05:18 Dose: 800 mg Documented by: Methylergonovine Maleate (Methylergonovine 0.2 Mg/1 Ml Amp) 0.2 mg IM ONETIME PRN PRN Reason: Excessive Vaginal Bleeding Nalbuphine HCl (Nalbuphine 10 Mg/1 Ml Vial) 5 mg IVPUSH ASDIRECTED PRN PRN Reason: Itching Ondansetron HCl (Ondansetron 4 Mg/2 Ml Sdv) 4 mg IVPUSH Q6H PRN PRN Reason: Nausea Ondansetron HCl (Ondansetron 4 Mg/2 Ml Sdv) 4 mg IVPUSH Q4H PRN PRN Reason: Nausea/Vomiting Last Admin: 02/15/21 14:37 Dose: 4 mg Documented by: Oxycodone/Acetaminophen (Acetaminophen/Oxycodone 325-5 Mg Tab) 1 tab PO Q4H PRN PRN Reason: Pain (severe 7-10) Last Admin: 02/16/21 17:15 Dose: 1 tab Documented by: Oxycodone/Acetaminophen (Acetaminophen/Oxycodone 325-5 Mg Tab) 2 tab PO Q4H PRN PRN Reason: Pain (severe 7-10) Last Admin: 02/17/21 07:04 Dose: 2 tab Documented by: Oxytocin (Oxytocin 10 Units/1 Ml Sdv) 10 unit IM ASDIRECTED PRN PRN Reason: Excessive Vaginal Bleeding Simethicone (Simethicone 80 Mg Tab.Chew) 160 mg PO QID [facility] Last Admin: 02/17/21 05:18 Dose: 160 mg Documented by: Sodium Chloride (Sodium Chloride 0.9% 10 Ml Syringe) 10 ml FLUSH ASDIRECTED PRN PRN Reason: Keep Vein Open Sodium Chloride (Sodium Chloride 0.9% 2.5 Ml Syringe) 2.5 ml FLUSH ASDIRECTED PRN PRN Reason: Keep Vein Open Sodium Chloride (Sodium Chloride 0.9% 10 Ml Sdv) 10 ml IV ASDIRECTED PRN PRN Reason: IV Use Discontinued Medications Citric Acid/Sodium Citrate (Citric Acid/Sodium Citrate Solution 30 Ml Cup) 30 ml PO ONETIME ONE Stop: 02/15/21 11:01 Ephedrine Sulfate (Ephedrine Sulfate 50 Mg/10 Ml Vial) Confirm Administered Dose 50 mg .ROUTE .STK-MED ONE Stop: 02/15/21 12:13 Fentanyl (Fentanyl 100 Mcg/2 Ml Sdv) Confirm Administered Dose 100 mcg .ROUTE .STK-MED ONE Stop: 02/15/21 11:16 Cefazolin Sodium/Dextrose 2 gm (/ Premix) 50 mls @ 100 mls/hr IV ONETIME ONE Stop: 02/15/21 11:29 Ketorolac Tromethamine (Ketorolac 30 Mg/Ml Sdv) 30 mg IVPUSH Q6H [facility] Stop: 02/16/21 13:01 Last Admin: 02/16/21 12:32 Dose: 30 mg Documented by: Morphine Sulfate (Morphine Pf 10 Mg/10 Ml Sdv) Confirm Administered Dose 10 mg .ROUTE .STK-MED ONE Stop: 02/15/21 11:16 Naloxone HCl (Naloxone 0.4 Mg/Ml Syringe) 0.1 mg IVPUSH ONETIME PRN PRN Reason: Respiratory Depression Stop: 02/16/21 10:58 Non-Formulary Medication ( Vit No.129/Iron/Fa [ One Daily Tablet]) 1 each PO DAILY [facility] Non-Formulary Medication (Fexofenadine/Pseudoephedrine [Verónica-D 24 Hour Tablet]) 1 each PO DAILY [facility] Ondansetron HCl (Ondansetron 4 Mg/2 Ml Sdv) Confirm Administered Dose 4 mg .ROUTE .STK-MED ONE Stop: 02/15/21 11:48 Ondansetron HCl (Ondansetron 4 Mg/2 Ml Sdv) Confirm Administered Dose 4 mg .ROUTE .STK-MED ONE Stop: 02/15/21 11:49 Oxytocin (Oxytocin 10 Units/1 Ml Sdv) Confirm Administered Dose 30 unit .ROUTE .STK-MED ONE Stop: 02/15/21 12:13 - Interaction Support Person: - Recovery Exam Fundal Tone: Firm Fundal Level: 1 Fingerbreadths Below Umbilicus Fundal Placement: Midline Lochia Amount: Scant Lochia Color: Rubra/Red Perineum Description: Intact, Minimal Bruising/Swelling Episiotomy/Laceration: None Bladder Status: Voiding Urinary Elimination: Voided - Exam General: Alert, Oriented Lungs: Normal Respiratory Effort Cardiovascular: Regular Rate, Regular Rhythm GI/Abdominal Exam: Normal Bowel Sounds, Soft, Non-Tender Extremities: Pedal Edema (trace). No: Steff's Sign Skin: Warm, Dry, Intact Wound/Incisions: Dressing Dry and Intact Neurological: No New Focal Deficit Psy/Mental Status: Alert, Normal Affect, Normal Mood - Problem List & Annotations (1) Status post repeat low transverse section SNOMED Code(s): 770377820, 16017603, 794870089, 145076783, 651804349 Code(s): Z98.891 - HISTORY OF UTERINE SCAR FROM PREVIOUS SURGERY Status: Acute Current Visit: Yes - Problem List Review Problem List Initiated/Reviewed/Updated: Yes - My Orders Last 24 Hours: My Active Orders 02/16/21 19:00 Ibuprofen [Motrin] 800 mg PO Q8H PRN 02/17/21 08:51 Ready for Discharge [RC] PER UNIT ROUTINE - Assessment Assessment:: POD 2 status post repeat LTCS - Plan Plan:: Doing well overall--would like to go home today. Discharge instructions reviewed. Follow up at [facility] 1 week for dressing removal. Discharge to home today.
[2021-02-17] MEDS: Docusate Sodium 100 MG Cap PO SCH (09:38)
== END 2021-02-17 12:13 | disposition home or self-care (01) | DRG 540 ==
LOC: MW.OB 10:20
PROVIDERS: ADMIT Obstetrics & Gynecology; ATTEND Obstetrics & Gynecology
PROC: 10D00Z1 Extraction of Products of Conception, Low, Open Approach (ICD-10-PCS; principal; 2021-02-15)
DX: O34.211 Maternal care for low transverse scar from previous cesarean delivery (principal); Z37.0 Single live birth; O99.214 Obesity complicating childbirth; E66.9 Obesity, unspecified; Z3A.39 39 weeks gestation of pregnancy
CPT/HCPCS: 36415; 51702; 59025; 82803; 85014; 85018; 85027; 86592; 86850; 86900; 86901; A9270-GY; J1200; J1885; J2270; J2405; J2590; J3010; J7120